=== PATIENT | female | born 2000 | race Caucasian/White ===

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

== ENCOUNTER 2019-01-05 01:37 | Outpatient (CLI) | payer OTHER ==
[~2019-01-05] VITALS: Ht 157.5 cm; Wt 64.0 kg
[2019-01-05 01:54] VITALS: BP 106/63
[2019-01-05] MEDS ORDERED: LACTATED RINGER'S 1000 ML IV ONE (02:15)
[2019-01-05] MEDS ORDERED: LR 1,000 ML IV ONE (02:15)
[2019-01-05 02:21] LABS: APPEARANCE, URINE CLEAR (CLEAR); BACTERIA, URINE AUTO NEGATIVE (NEGATIVE); BILIRUBIN, URINE AUTO NEGATIVE (NEGATIVE); BLOOD, URINE BLOOD NEGATIVE (NEGATIVE); COLOR, URINE YELLOW (YELLOW); GLUCOSE, URINE (UA) AUTO NEGATIVE (NEGATIVE); KETONE, URINE AUTO NEGATIVE (NEGATIVE); LEUKOCYTE ESTERASE, URINE AUTO NEGATIVE (NEGATIVE); MUCUS, URINE SMALL (NEGATIVE); NITRITE, URINE AUTO NEGATIVE (NEGATIVE); PROTEIN, URINE AUTO NEGATIVE (NEGATIVE); RBC, URINE AUTO 1 /HPF (0-3); SPECIFIC GRAVITY URINE AUTO 1.014 (1.002-1.035); SQUAMOUS EPITHELIAL CELL UR AU 1 /HPF (0-6); UROBILINOGEN, URINE AUTO 0.2 mg/dL (0.0-2.0); WBC, URINE AUTO 1 /HPF (0-3)
[2019-01-05] MEDS ORDERED: TERBUTALINE SULFATE 1 MG/ML VIAL (J3105) As Ordered ONE (02:29)
[2019-01-05] MEDS ORDERED: TERBUTALINE SULFATE 1 MG/ML VIAL (J3105) SC ONE ×2 (02:30→03:15)
[2019-01-05 03:12] VITALS: BP 88/51
[2019-01-05 03:13] VITALS: BP 88/49
[2019-01-05 03:14] VITALS: BP 87/48
[2019-01-05 05:46] VITALS: BP 100/50
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
--- NOTE | 2019-01-05 09:25 | IPNPDOC ---
Text Note Date of Service The patient was seen on 01/05/19. NOTE Subjective: Patient reports contractions have spaced. Objective: SVE: no change. Assessment: IUP at 33.1 weeks gestation, not in active labor Plan: Discharge to home. Remove saline lock. VS,Fishbone, I+O VS, Fishbone, I+O Vital Signs Date Time Temp Pulse Resp B/P (MAP) Pulse Ox O2 Delivery O2 Flow Rate FiO2 01/05/19 05:46 98.6 110 16 100/50 (67) I&O- Last 24 Hours up to 6 AM 01/05/19 06:00 Intake Total 1275 ml Balance 1275 ml CJ GARCIA CNM Jan 05, 2019 09:25
== END 2019-01-05 09:20 | disposition home or self-care (01) ==
LOC: M LDO 01:37
PROVIDERS: ATTEND Advanced Practice Midwife
DX: O26.893 Other specified pregnancy related conditions, third trimester (principal); R10.9 Unspecified abdominal pain; O47.03 False labor before 37 completed weeks of gestation, third trimester; Z3A.33 33 weeks gestation of pregnancy
CPT/HCPCS: 59025; 81001; 87086; G0378; G0463; J3105

== ENCOUNTER 2019-01-18 13:53 | Emergency (ER) | payer OTHER, SELFPAY ==
[~2019-01-18] VITALS: Ht 157.5 cm; Wt 64.5 kg
[~2019-01-18 13:53] MED LIST changes: -PREN1TAB14; -URSO300C3 PO
[2019-01-18] MEDS ORDERED: PREN1TAB14 (14:00)
[2019-01-18 15:15] LABS: BASO % 0.4 % (0.0-1.0); EOS # 0.2 10^3/uL (0.0-0.5); EOS % 2.2 % (0.0-3.0); HEMATOCRIT 31.4 % (36.0-47.0); HEMOGLOBIN 10.4 g/dl (12.0-15.5); LYMPH % 24.4 % (24.0-44.0); MEAN CORPUSCULAR HEMOGLOBIN 31.8 pg (27.0-33.0); MEAN CORPUSCULAR HGB CONC 33.1 g/dl (32.0-36.5); MONO # 0.4 10^3/uL (0.0-0.8); MONO % 4.5 % (0.0-5.0); NEUTROPHILS # 5.6 10^3/uL (1.5-8.5); PLATELET COUNT, AUTOMATED 246 10^3/uL (150-450); RED BLOOD COUNT 3.27 10^6/uL (4.00-5.40); WHITE BLOOD COUNT 8.2 10^3/uL (4.0-10.0)
--- NOTE | 2019-01-18 15:36 | REP ---
Clinical: Shortness of breath . Comparison: None . Findings: The mediastinum and cardiac silhouette are stable and within normal limits for portable technique. The lung go are clear without acute consolidation, effusion, or pneumothorax. Skeletal structures are intact. Impression: No acute cardiopulmonary process appreciated. Electronically Signed by Kris Pedraza MD 01/18/2019 03:27 P
[2019-01-18 15:40] LABS: ALBUMIN 2.9 GM/DL (3.2-5.2); ALT/SGPT 29 U/L (12-78); BILIRUBIN,DIRECT 0.2 MG/DL (0.0-0.2); BILIRUBIN,TOTAL 0.5 MG/DL (0.2-1.0); BLOOD UREA NITROGEN 8 MG/DL (7-18); CALCIUM LEVEL 8.2 MG/DL (8.5-10.1); CARBON DIOXIDE LEVEL 24 MEQ/L (21-32); CHLORIDE LEVEL 104 MEQ/L (98-107); CREATININE FOR GFR 0.48 MG/DL (0.55-1.30); GLUCOSE, FASTING 72 MG/DL (70-100); MAGNESIUM LEVEL 1.9 MG/DL (1.4-2.0); POTASSIUM SERUM 4.1 MEQ/L (3.5-5.1); SODIUM LEVEL 137 MEQ/L (136-145); TOTAL PROTEIN 6.5 GM/DL (6.4-8.2)
[2019-01-18] MEDS ORDERED: ISOVUE-370 76% 100ML VIAL (Q9967) As Ordered ONE (16:05)
--- NOTE | 2019-01-18 16:28 | REP ---
CT pulmonary angiogram: With IV contrast. History: Shortness of breath. 25 weeks gestation. Rule out pulmonary embolus. Comparison studies: Comparison is made with today's chest x-ray. Contrast dose: 75 ML of Isovue [address] technique: Helical scanning is acquired and overlapping 1.5 mm and contiguous 3 mm axial images are reformatted. In addition, maximum intensity projection and multiplanar re-formation images are generated in sagittal and coronal imaging projections. CT pulmonary angiographic findings: There is good opacification of the pulmonary arterial tree. There is no CT evidence of pulmonary embolism. Maximal intensity projection images show no evidence of vessel cutoff or filling defect. The thoracic aorta enhances homogeneously and it is normal in caliber and course. There is no evidence of pleural or pericardial effusion. No infiltrate is seen in the lung go. The visualized upper abdominal structures are unremarkable. No bony destructive lesion. Impression: No CT evidence of pulmonary embolus. Negative CT pulmonary angiogram. Electronically Signed by John Espinoza MD 01/18/2019 04:20 P
[2019-01-18 17:40] LABS: THYROID STIMULATING HORMONE 0.303 uIU/ML (0.463-3.98)
--- NOTE | 2019-01-18 20:40 | ECGEPIP ---
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
[2019-01-18] MEDS ORDERED: NS 1,000 ML IV ONE (21:00)
[2019-01-18 23:00] VITALS: BP 119/67
== END 2019-01-18 23:21 | disposition home or self-care (01) ==
LOC: M ED 13:53
DX: R06.00 Dyspnea, unspecified (principal); E05.90 Thyrotoxicosis, unspecified without thyrotoxic crisis or storm; L29.9 Pruritus, unspecified
CPT/HCPCS: 36415; 71045; 71275; 80048; 80076; 81001; 82239; 83735; 84443; 84550; 85025; 87086; 87486; 87581; 87633; 87798; 93005; 93041; 94760; 99285; Q9967

== ENCOUNTER → 2019-01-18 | Outpatient (CLI) | payer OTHER ==
[~2019-01-18] MED LIST changes: +PREN1TAB14; +URSO300C3 PO
[2019-01-18 18:21] LABS: ALBUMIN 2.9 GM/DL (3.2-5.2); BILIRUBIN,DIRECT 0.2 MG/DL (0.0-0.2); BILIRUBIN,TOTAL 0.6 MG/DL (0.2-1.0); TOTAL PROTEIN 6.4 GM/DL (6.4-8.2)
== END ==
LOC: M SMT 13:17
PROVIDERS: ATTEND Obstetrics & Gynecology
DX: L29.9 Pruritus, unspecified (principal)

== ENCOUNTER 2019-01-21 12:06 | Outpatient (CLI) | payer OTHER, SELFPAY ==
[~2019-01-21] VITALS: Ht 157.5 cm; Wt 65.9 kg
[~2019-01-21 12:06] MED LIST changes: +PREN1TAB14
[2019-01-21 12:20] VITALS: BP 88/49
[2019-01-21] MEDS ORDERED: BETAMETHASONE SOLUSPAN 6MG/ML INJ 5ML (J0702) IM SCH (12:45)
[2019-01-21 13:06] VITALS: BP 79/45
--- NOTE | 2019-01-21 14:51 | REP ---
Clinical: Growth evaluation. Comparison: 10/05/2018 . Findings: Examination demonstrates a single live intrauterine in cephalic presentation. motion is identified by technologist. Placenta is noted posterior and grade zero without evidence for placenta previa or abruption. No evidence for nuchal cord. Gestational age by LMP 35 weeks 4 days with BOMO 02/21/2019 . Gestational age by current measurements 35 weeks 4 days with BOOM 02/21/2019 . FHR equals 153 beats per minute. Estimated weight 2757 grams ( 52nd percentile). Biophysical profile score: 8/8 Amniotic fluid index: 4.7 cm Umbilical cord SD ratio: 1.90 Impression: 1. Single live intrauterine in cephalic presentation demonstrating appropriate interval growth. 2. Biophysical profile score normal. 3. Amniotic fluid volume below normal limits. Electronically Signed by Kris Pedraza MD 01/21/2019 02:43 P
[2019-01-21 14:57] VITALS: BP 105/55
[2019-01-21] MEDS ORDERED: URSODIOL 300 MG CAP PO SCH (15:00)
[2019-01-22] MEDS ORDERED: URSO300C3 PO (13:24)
== END 2019-01-21 15:20 | disposition home or self-care (01) ==
LOC: M LDO 12:06
PROVIDERS: ATTEND Obstetrics & Gynecology
DX: O99.89 Other specified diseases and conditions complicating pregnancy, childbirth and the puerperium (principal); Z3A.35 35 weeks gestation of pregnancy; K71.0 Toxic liver disease with cholestasis
CPT/HCPCS: 59025; 76816; 76819; 96372; G0378; G0463; J0702

== ENCOUNTER 2019-01-22 12:53 | Outpatient (CLI) | payer OTHER ==
[~2019-01-22] VITALS: Ht 157.5 cm; Wt 66.0 kg
[2019-01-22 13:09] VITALS: BP 103/59
[2019-01-22] MEDS ORDERED: URSO300C3 PO (13:24)
--- NOTE | 2019-01-22 13:39 | IPNPDOC ---
Text Note Date of Service The patient was seen on 01/22/19. NOTE Outpatient 18yo BOOM 02/22/19. Presents @ 35+ gestation for betamethasone #2. Hx significant for dx cholestasis and previous Scheduled for repeat 01/26/19. Cat I tracing, VSS, no UC. Discharged home after injection. Routine precautions of labor and daily FKC reviewed. VS,Fishbone, I+O VS, Fishbone, I+O Vital Signs Date Time Temp Pulse Resp B/P (MAP) Pulse Ox O2 Delivery O2 Flow Rate FiO2 01/22/19 13:09 98.7 100 18 103/59 (74) Marci Stovall CNM Jan 22, 2019 13:39
[2019-01-22 13:41] VITALS: BP 105/56
[2019-01-22] MEDS ORDERED: BETAMETHASONE SOLUSPAN 6MG/ML INJ 5ML (J0702) IM ONE (13:45)
== END 2019-01-22 13:44 | disposition home or self-care (01) ==
LOC: M LDO 12:53
PROVIDERS: ATTEND Advanced Practice Midwife
DX: O99.89 Other specified diseases and conditions complicating pregnancy, childbirth and the puerperium (principal); Z3A.35 35 weeks gestation of pregnancy; K71.0 Toxic liver disease with cholestasis
CPT/HCPCS: 96372; G0378; J0702

== ENCOUNTER 2019-01-26 09:39 | Inpatient (IN) | payer OTHER ==
[~2019-01-26] VITALS: Ht 157.5 cm; Wt 66.8 kg
[~2019-01-26 09:39] MED LIST changes: +URSO300C3 PO
[2019-01-26] MEDS ORDERED: LACTATED RINGER'S 1000 ML IV STA ×2 (10:10→18:40)
[2019-01-26] MEDS ORDERED: LR 1,000 ML IV SCH ×3 (10:10→13:30)
[2019-01-26] MEDS ORDERED: ceFAZolin SOD 2 GM in IV 1 EA IV ONE (10:15)
[2019-01-26] MEDS ORDERED: BICITRA 30ML SOLN UDC PO ONE (10:15)
[2019-01-26 10:49] LABS: HEMATOCRIT 31.2 % (36.0-47.0); MEAN CORPUSCULAR HEMOGLOBIN 30.8 pg (27.0-33.0); MEAN CORPUSCULAR HGB CONC 32.1 g/dl (32.0-36.5); PLATELET COUNT, AUTOMATED 264 10^3/uL (150-450); RED BLOOD COUNT 3.25 10^6/uL (4.00-5.40); WHITE BLOOD COUNT 9.2 10^3/uL (4.0-10.0)
[2019-01-26] MEDS ORDERED: NALOXONE INJ 0.4 MG/1 ML VIAL (J2310) IV PRN ×2 (11:49)
[2019-01-26] MEDS ORDERED: ONDANSETRON 4MG/2ML VIAL (J2405) IV PRN ×3 (11:49→13:30)
[2019-01-26] MEDS ORDERED: diphenhydrAMINE INJ 50MG/ML VIAL (J1200) IV PRN (11:49)
[2019-01-26] MEDS ORDERED: NALBUPHINE HCL 10 MG/ML AMP (J2300) IV PRN ×2 (11:49→13:30)
[2019-01-26] MEDS ORDERED: METOCLOPRAMIDE INJ 10MG/2ML VIAL (J2765) IV PRN (11:49)
[2019-01-26] MEDS ORDERED: KETOROLAC 60 MG/2 ML VIAL (J1885) As Ordered ONE (11:57)
[2019-01-26] MEDS ORDERED: ACETAMINOPHEN 1000MG 100ML IV BTL (OFIRMEV) (J0131 PER 10MG) As Ordered ONE (11:57)
[2019-01-26] MEDS ORDERED: dexameTHASONE 4 MG/ML 1ML VIAL (J1100) As Ordered ONE (11:57)
[2019-01-26] MEDS ORDERED: ONDANSETRON 4MG/2ML VIAL (J2405) As Ordered ONE (11:57)
[2019-01-26] MEDS ORDERED: ePHEDrine SULFATE 25 MG/5 ML(5MG/ML) SYRINGE As Ordered ONE (11:57)
[2019-01-26] MEDS ORDERED: MORPHINE PRES-FREE INJ 10 MG/10 ML VIAL (J2274) As Ordered ONE (11:57)
[2019-01-26] MEDS ORDERED: PHENYLephrine HCL 500 MCG/5 ML (100MCG/ML) SYRINGE (J2370) As Ordered ONE (11:57)
[2019-01-26] MEDS ORDERED: OXYTOCIN INJ 10 UNITS/ML VIAL (J2590) As Ordered ONE ×2 (11:57→12:42)
[2019-01-26] MEDS ORDERED: MEASLES,MUMPS,RUBELLA VACCINE INJ (MMR-II) (90707) SC SCH (12:45)
[2019-01-26] MEDS ORDERED: PROMETHAZINE 25 MG TAB PO PRN (12:45)
[2019-01-26] MEDS ORDERED: RHOGAM 300 MCG (1500 IU) INJ (J2790) IM SCH (12:45)
[2019-01-26] MEDS ORDERED: OXYTOCIN DRIP 30 UNITS in IV 1 EA IV SCH (12:45)
[2019-01-26] MEDS ORDERED: ACETAMINOPHEN 500 MG TAB PO PRN (12:45)
[2019-01-26] MEDS ORDERED: fentaNYL 100 MCG/2 ML INJECTION (J3010) As Ordered ONE (13:18)
[2019-01-26] MEDS: fentaNYL 100 MCG/2 ML INJECTION (J3010) IV PRN ×4 (13:22→14:16)
[2019-01-26 15:00] VITALS: BP 96/63
[2019-01-26 15:30] VITALS: BP 94/56
--- NOTE | 2019-01-26 16:16 | RO ---
DATE OF PROCEDURE: 01/26/2019 PREOPERATIVE DIAGNOSES: 1. Intrahepatic cholestasis of . 2. History of section, for repeat. 3. Intrauterine at 36 weeks 1 day estimated gestational age. POSTOPERATIVE DIAGNOSES: PROCEDURE: SURGEON: Mari Benavides MD ELECTRICIAN'S ASSISTANT: Dragan Lewis DO ANESTHESIA: Spinal. ESTIMATED BLOOD LOSS: 600 mL. IV FLUIDS: 1500 mL of lactated Ringer's solution. URINE OUTPUT: 275 mL. OPERATIVE FINDINGS: Live born female infant, scores 8 and 9, weight was 2590 grams or 5 pounds 11 ounces. PREOPERATIVE ANTIBIOTICS: 2 grams of Ancef. INFECTION CLASSIFICATION: 2. SPECIMENS: None. DESCRIPTION OF OPERATION: After informed consent was obtained and written consent was reviewed, the patient was brought to operating room where spinal anesthesia was placed. She was then placed in the supine position with a left lateral tilt. Lopez catheter was placed and set to gravity. She was then prepped and draped in a normal sterile fashion. A time out in the operating room was then performed identifying the patient, procedure to be performed, as well as drug allergies. Anesthesia was tested and deemed to be adequate. A Pfannenstiel skin incision was then made, and this was carried down to the underlying rectus fascia. This was done along the previous skin incision. The fascia was then scored bilaterally and was then extended. The fascia was then dissected off the underlying rectus muscles both superiorly, inferiorly. The rectus muscles were then in the midline. The peritoneum was then entered sharply. A Mobius retractor was then inserted. The lower uterine segment was then identified, it was excised, and this was extended manually. Amniotomy was then performed productive of clear fluid. head was brought to the level of the incision atraumatically and delivered along with shoulders and corpus. Cord was clamped times two and was cut, and the infant was taken over to the warmer with a good cry. The placenta was then delivered grossly intact. The uterus was exteriorized and cleared of all clots and debris. The uterine incision was then closed in two layers using #0 Vicryl, first in a running locking fashion followed by a second layer for imbrication in a running nonlocking. Additional suture closure was done with #0 Vicryl in a locking fashion for hemostasis. Hemostasis was then noted. The abdomen was then suctioned. The uterine incision was once again inspected and noted to be hemostatic, and it was returned in the patient's abdomen, was reinspected noted be hemostatic. The Mobius retractor was then removed. The anterior peritoneum was then reapproximated using #3-0 Vicryl. The rectus muscles were reapproximated using #3-0 Vicryl. The subcutaneous tissue was then irrigated and suctioned. The subcutaneous tissue was then reapproximated with #3-0 Vicryl. Several subdermal stitches were placed of #3-0 Vicryl, and the skin was closed with #4-0 Monocryl in a subcuticular fashion. The incision was then cleaned and dried and was dressed. The patient was then taken to recovery in stable condition. Counts were correct. Dr. Lewis, my surgical elastic knitter hand frame, played an essential role during the surgery. He assisted with tissue identification and retraction, delivery of the as well as wound closure.
[2019-01-26 16:30] VITALS: BP 100/65
[2019-01-26 17:30] VITALS: BP 100/60
[2019-01-26] MEDS ORDERED: PROMETHAZINE INJ 25 MG/ML VIAL (J2550) IV PRN (17:45)
[2019-01-26] MEDS: KETOROLAC 30 MG/ML VIAL (J1885) IV SCH (18:48)
[2019-01-26] MEDS: DOCUSATE SODIUM 100 MG CAP PO SCH (20:31)
[2019-01-26 22:00] VITALS: BP 111/72
[2019-01-27] MEDS: KETOROLAC 30 MG/ML VIAL (J1885) IV SCH ×2 (01:50→06:38)
[2019-01-27 02:00] VITALS: BP 105/56
[2019-01-27] MEDS: PERCOCET 5MG/325MG TAB PO PRN ×4 (04:34→19:41)
[2019-01-27 06:00] VITALS: BP 103/53
[2019-01-27] MEDS ORDERED: IBUP80TA PO (07:37)
[2019-01-27] MEDS ORDERED: DOCU100C16 PO (07:37)
[2019-01-27] MEDS ORDERED: PERCOCET PO (07:37)
[2019-01-27 07:47] LABS: HEMOGLOBIN 8.4 g/dl (12.0-15.5); MEAN CORPUSCULAR HEMOGLOBIN 30.4 pg (27.0-33.0); MEAN CORPUSCULAR HGB CONC 32.3 g/dl (32.0-36.5); MEAN CORPUSCULAR VOLUME 94.2 fl (80.0-96.0); PLATELET COUNT, AUTOMATED 275 10^3/uL (150-450); RED BLOOD COUNT 2.76 10^6/uL (4.00-5.40); WHITE BLOOD COUNT 16.6 10^3/uL (4.0-10.0)
[2019-01-27] MEDS: PRENATAL VITAMINS CHEWABLE TABLET PO SCH (08:25)
[2019-01-27] MEDS: DOCUSATE SODIUM 100 MG CAP PO SCH ×2 (08:25→20:20)
[2019-01-27 09:57] VITALS: BP 105/62
[2019-01-27 14:00] VITALS: BP 104/56
[2019-01-27] MEDS: IBUPROFEN 800 MG TAB PO SCH ×2 (15:27→22:18)
[2019-01-27] MEDS ORDERED: diphenhydrAMINE 50 MG CAP PO PRN (17:00)
[2019-01-27 18:05] VITALS: BP 95/53
[2019-01-27 22:05] VITALS: BP 95/57
[2019-01-28 02:06] VITALS: BP 95/53
[2019-01-28] MEDS: IBUPROFEN 800 MG TAB PO SCH (06:11)
[2019-01-28 06:16] VITALS: BP 102/53
--- NOTE | 2019-01-28 07:25 | DSES ---
DATE OF ADMISSION: 01/26/2019 DATE OF DISCHARGE: 01/28/2019 DISCHARGE DIAGNOSIS: 1. Repeat section, postoperative day two. 2. Cholestasis. SURGEON: Dr. Mari Benavides CUTTING INSPECTOR: Dr. Dragan Lewis HISTORY: La Nena is a 18-year-old, 2, para 1-1-0-2 now, who was admitted for repeat section at 36 and 1/7 weeks due to cholestasis. Her surgery was uncomplicated. Her estimated blood loss was 600 mL. She did deliver a female weighing 2590 grams, 5 pounds 11 ounces, Apgars 8 and 9. SUBJECTIVE: The patient is tolerating by mouth fluids and regular diet. She is voiding without difficulty and passing flatus. She has been out of bed for self care, roderick care and infant care. She is breast feeding. Her pain has been well controlled with by mouth pain medications. OBJECTIVE: Temperature 98.4, pulse 82, respirations 18, blood pressure 102/53. Preoperative CBC with hemoglobin 10.0, hematocrit 31.2 and platelets 264. Postoperative CBC with hemoglobin 8.4, hematocrit 26.0 and platelets 275. Breasts are soft and nontender. Nipples are intact. Her abdomen is fundus firm at one fingerbreadth below umbilicus. Incision is well approximated. Dressing is intact. There is no new drainage noted. Perineum lochia rubra scant. Bilateral lower extremities with no edema. PLAN: Discharge the patient home today. She is to followup at [facility] for a 2-week incision check and a 6-week appointment. Prescriptions have been E-prescribed by Dr. Dragan Lewis to her pharmacy. I did review discharge instructions that include breast care, incision care, roderick care, pelvic rest, activity and lifting restrictions, danger signs to report and access to her provider. The patient has had all of her questions answered and desires discharge today. edited: 01/29/2019 0718 tkf NAIMA
[2019-01-28] MEDS: PERCOCET 5MG/325MG TAB PO PRN (07:48)
[2019-01-28] MEDS: PRENATAL VITAMINS CHEWABLE TABLET PO SCH (07:48)
[2019-01-28] MEDS: DOCUSATE SODIUM 100 MG CAP PO SCH (07:48)
[2019-01-28 09:58] VITALS: BP 101/61
[2019-01-28 10:00] VITALS: BP 105/57
== END 2019-01-28 11:20 | disposition home or self-care (01) | DRG 771 ==
LOC: M LDI 09:39 → M OBS 15:06
PROVIDERS: ADMIT Obstetrics & Gynecology; ATTEND Obstetrics & Gynecology
PROC: 10D00Z1 Extraction of Products of Conception, Low, Open Approach (ICD-10-PCS; principal; 2019-01-26 11:30)
DX: O26.62 Liver and biliary tract disorders in childbirth (principal); K83.1 Obstruction of bile duct; Z3A.36 36 weeks gestation of pregnancy; O34.211 Maternal care for low transverse scar from previous cesarean delivery; Z37.0 Single live birth; O99.52 Diseases of the respiratory system complicating childbirth; J45.909 Unspecified asthma, uncomplicated

== ENCOUNTER 2019-02-09 06:49 | Emergency (ER) | payer OTHER ==
[~2019-02-09] VITALS: Ht 157.5 cm; Wt 61.4 kg
[~2019-02-09 06:49] MED LIST changes: +DOCU100C16 PO; +IBUP80TA PO; +PERCOCET PO
[2019-02-09] MEDS ORDERED: CLIN300C5 (06:59)
[2019-02-09] MEDS ORDERED: ACET-683 PO (08:54)
[2019-02-09 09:37] LABS: BASO % 0.6 % (0.0-1.0); EOS # 0.2 10^3/uL (0.0-0.5); EOS % 2.8 % (0.0-3.0); HEMATOCRIT 36.7 % (36.0-47.0); HEMOGLOBIN 11.7 g/dl (12.0-15.5); LYMPH # 1.4 10^3/uL (1.5-5.0); LYMPH % 20.9 % (24.0-44.0); MEAN CORPUSCULAR HEMOGLOBIN 30.2 pg (27.0-33.0); MEAN CORPUSCULAR HGB CONC 31.9 g/dl (32.0-36.5); MEAN CORPUSCULAR VOLUME 94.6 fl (80.0-96.0); MONO # 0.3 10^3/uL (0.0-0.8); MONO % 4.6 % (0.0-5.0); NEUTROPHILS # 4.6 10^3/uL (1.5-8.5); NEUTROPHILS % 70.8 % (36.0-66.0); PLATELET COUNT, AUTOMATED 265 10^3/uL (150-450); RED BLOOD COUNT 3.88 10^6/uL (4.00-5.40); WHITE BLOOD COUNT 6.5 10^3/uL (4.0-10.0)
[2019-02-09 09:57] LABS: BLOOD UREA NITROGEN 11 MG/DL (7-18); CALCIUM LEVEL 8.9 MG/DL (8.5-10.1); CARBON DIOXIDE LEVEL 28 MEQ/L (21-32); CHLORIDE LEVEL 106 MEQ/L (98-107); CREATININE FOR GFR 0.56 MG/DL (0.55-1.30); GLUCOSE, FASTING 76 MG/DL (70-100); POTASSIUM SERUM 4.4 MEQ/L (3.5-5.1); SODIUM LEVEL 140 MEQ/L (136-145)
--- NOTE | 2019-02-09 10:40 | REP ---
Pelvic sonography: History: Post . Fever. 2 weeks post delivery. Sonographic findings: Uterine dimensions are 11.3 x 4.6 x 8.8 cm. Endometrial echo is 2.3 cm thick and heterogeneous. There is some fluid and debris in the endometrium. No free fluid in the cul-de-sac. Normal left ovary is seen measuring 2.7 x 2.0 x 1.7 cm. The right ovary could not be visualized. No adnexal mass or free fluid is seen. Impression: Irregularly thickened endometrium, some residual uterine enlargement. Normal left ovary. Right ovary could not be visualized. Electronically Signed by John Espinoza MD 02/09/2019 03:32 P
[2019-02-09] MEDS ORDERED: CLINDAMYCIN 600 MG in IV 1 EA IV ONE (11:15)
[2019-02-09 11:59] VITALS: BP 123/68
--- NOTE | 2019-02-10 14:08 | ED PDOC ---
Post-Departure Follow-Up dr tinoco faxed formal report of pelvic us for fu Jose Luis Pyle MD Feb 10, 2019 14:08
== END 2019-02-09 12:00 | disposition home or self-care (01) ==
LOC: M ED 06:49
DX: O86.12 Endometritis following delivery (principal)

== ENCOUNTER → 2019-04-01 | Outpatient (REF) | payer OTHER ==
[~2019-04-01] MED LIST changes: +ACET-683 PO; +CLIN300C5
[2019-04-01 22:51] LABS: CHLAMYDIA DNA AMPLIFICATION NEGATIVE (NEGATIVE); GC DNA AMPLIFICATION NEGATIVE (NEGATIVE)
== END ==
LOC: M SFHCLERA 16:00
PROVIDERS: ATTEND Physician Assistant
DX: R10.2 Pelvic and perineal pain (principal)
CPT/HCPCS: 81002; 81025; 87070; 87661; G0463

== ENCOUNTER 2019-05-23 22:40 | Emergency (ER) | payer OTHER ==
[~2019-05-23] VITALS: Ht 157.5 cm; Wt 62.6 kg
[2019-05-23 22:41] VITALS: BP 122/67
[2019-05-23 23:32] LABS: BASO % 0.5 % (0.0-1.0); EOS # 0.2 10^3/uL (0.0-0.5); EOS % 3.2 % (0.0-3.0); HEMATOCRIT 38.1 % (36.0-47.0); HEMOGLOBIN 12.7 g/dl (12.0-15.5); LYMPH # 3.2 10^3/uL (1.5-5.0); LYMPH % 42.7 % (24.0-44.0); MEAN CORPUSCULAR HEMOGLOBIN 30.8 pg (27.0-33.0); MEAN CORPUSCULAR HGB CONC 33.3 g/dl (32.0-36.5); MEAN CORPUSCULAR VOLUME 92.5 fl (80.0-96.0); MONO # 0.5 10^3/uL (0.0-0.8); MONO % 6.6 % (0.0-5.0); NEUTROPHILS # 3.5 10^3/uL (1.5-8.5); NEUTROPHILS % 46.6 % (36.0-66.0); PLATELET COUNT, AUTOMATED 274 10^3/uL (150-450); RED BLOOD COUNT 4.12 10^6/uL (4.00-5.40); WHITE BLOOD COUNT 7.6 10^3/uL (4.0-10.0)
[2019-05-23 23:49] LABS: INR 1.03; PROTHROMBIN TIME 13.2 SECONDS (11.8-14.0)
[2019-05-23 23:50] LABS: PARTIAL THROMBOPLASTIN TIME 34.8 SECONDS (25.0-38.4)
[2019-05-23 23:53] LABS: D-DIMER QUANT 525.1 ng/ml (<500)
[2019-05-24 00:21] LABS: CK-MB VALUE MASS < 1.0 NG/ML (<3.6); CPK CREATINE PHOSPHOKINASE 72 U/L (26-192); MB/CK RELATIVE INDEX 1.39 (< OR =4); TROPONIN I < 0.02 NG/ML (< 0.10)
[2019-05-24] MEDS ORDERED: GI COCKTAIL 50ML BTL(HYOSCYAMINE/MAALOX/LIDOCAINE VISCOUS)(1:3:1) PO ONE (01:00)
--- NOTE | 2019-05-24 07:26 | ECGEPIP ---
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
--- NOTE | 2019-05-24 08:06 | REP ---
Chest x-ray: Two views. History: Chest pain left-sided. . Comparison study: Comparison chest x-ray January 18, 2019 . Findings: The lungs are well inflated and free of infiltrate. The pleural angles are sharp. The heart size is normal. Pulmonary vasculature is not increased. No significant bony abnormality is seen. There are clips in the right upper quadrant of the abdomen. Impression: Negative chest x-ray. Electronically Signed by John Espinoza MD 05/24/2019 07:58 A
== END 2019-05-24 02:01 | disposition home or self-care (01) ==
LOC: M ED 22:40
DX: K21.9 Gastro-esophageal reflux disease without esophagitis (principal); R07.9 Chest pain, unspecified

== ENCOUNTER 2019-06-13 10:32 | Inpatient (IN) | payer OTHER ==
[~2019-06-13] VITALS: Ht 158.8 cm; Wt 65.2 kg
[2019-06-13] MEDS ORDERED: ALBUTEROL 90 MCG/ACT 8GM HFA INHALER INH ONE ×2 (11:15→12:30)
[2019-06-13 11:37] VITALS: O2SAT 85
[2019-06-13 11:38] LABS: BASO % 0.4 % (0.0-1.0); EOS # 0.1 10^3/uL (0.0-0.5); EOS % 1.9 % (0.0-3.0); HEMATOCRIT 36.9 % (36.0-47.0); HEMOGLOBIN 12.3 g/dl (12.0-15.5); LYMPH % 39.1 % (24.0-44.0); MEAN CORPUSCULAR HEMOGLOBIN 30.5 pg (27.0-33.0); MEAN CORPUSCULAR HGB CONC 33.3 g/dl (32.0-36.5); MEAN CORPUSCULAR VOLUME 91.6 fl (80.0-96.0); MONO # 0.4 10^3/uL (0.0-0.8); MONO % 7.3 % (0.0-5.0); NEUTROPHILS # 2.7 10^3/uL (1.5-8.5); NEUTROPHILS % 51.1 % (36.0-66.0); PLATELET COUNT, AUTOMATED 262 10^3/uL (150-450); RED BLOOD COUNT 4.03 10^6/uL (4.00-5.40); WHITE BLOOD COUNT 5.2 10^3/uL (4.0-10.0)
[2019-06-13 12:16] LABS: ALBUMIN 3.9 GM/DL (3.2-5.2); BILIRUBIN,DIRECT 0.1 MG/DL (0.0-0.2); BILIRUBIN,TOTAL 0.6 MG/DL (0.2-1.0); TOTAL PROTEIN 7.3 GM/DL (6.4-8.2)
[2019-06-13] MEDS ORDERED: methylPREDNISolone INJ 125 MG/2 ML VIAL (J2930) IV ONE (12:30)
--- NOTE | 2019-06-13 13:05 | REP ---
Clinical: Cough and shortness of breath . Comparison: 05/23/2019 . Findings: The mediastinum and cardiac silhouette are stable and within normal limits for portable technique. The lung go are clear without acute consolidation, effusion, or pneumothorax. Skeletal structures are intact. Impression: No acute cardiopulmonary process appreciated. Electronically Signed by Kris Pedraza MD 06/13/2019 12:57 P
[2019-06-13] MEDS ORDERED: MULTTAB20 PO (13:38)
[2019-06-13] MEDS ORDERED: ALBUTEROL 90 MCG/ACT 8GM HFA INHALER INH PRN (15:00)
[2019-06-13 15:21] LABS: ABG BASE EXCESS -1.6 (-2.0-2.0); ABG PARTIAL PRESSURE CO2 33.7 mmHg (35.0-45.0); ABG STANDARD HCO3 23.2 MEQ/L (22.0-26.0); ABG TOTAL CO2 23.1 MEQ/L (22.0-29.0); ABG pH (ARTERIAL) 7.433 UNITS (7.350-7.450)
--- NOTE | 2019-06-13 15:39 | HPEPDOC ---
General Date of Admission 06/13/19 Date of Service: Jun 13, 2019 Chief Complaint The patient is a 18-year-old female admitted with a reason for visit of Cough, Sob. Source: Patient, RN/MD History of Present Illness 18 year old female with PMH of asthma not on any regular medications came to the ED with complaints of sore throat, tightness of the throat for 1 week and wheezi ng and SOB off and on for 1 week. She then started having diarrhea for the past 2 days. SHe describes it at liquid brown stools 2 to 3 times a day every time she eats anything. She was also found to have Beta- HCG positive. In the ED she was noted to be hypoxic to 85% on ambulation. She received methyl pred and albuterol with improvement of her symptoms however continued to become hypoxic on ambulation. CXR did not show any acute changes. Her respiratory panel was negative. Her strep throat was also negative. COVID-19 test was sent out. sharif was admitted for Hypoxia and asthma exacerbation. 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 Patient mother flew in from [place] 2 days ago. Home Medications Scheduled No122/Iron/Folic Acid ( Multi Tablet) 1 Each Tablet, 1 TAB PO DAILY, (Reported) Allergies Coded Allergies: No Known Allergies (Unverified , 08/22/18) Past Medical History Medical History Asthma Family History Significant Family History: No pertinent family hx (discussed with pateint) Social History * Smoker: Denies Alcohol: Denies Drugs: denies A-FIB/CHADSVASC A-FIB History Current/History of A-Fib/PAF?: No Review of Systems Constitutional: Denies: Chills, Fever, Night Sweats Eyes: Denies: Pain, Vision change ENT: Reports: Sore Throat Skin: Denies: Rash, Lesions, Breakdown Pulmonary: Reports: Dyspnea, Cough Cardiovascular: Denies: Chest Pain, Palpitations, Orthopnea, Paroxysmal Noc. Dyspnea, Lt Headedness Gastrointestinal: Reports: Diarrhea Genitourinary: Denies: Dysuria, Frequency, Incontinence, Retention Hematologic: Denies: Bruising, Bleeding Excessively Musculoskeletal: Denies: Neck Pain, Back Pain, Joint Pain, Muscle Pain, Spasms Physical Examination General Exam: Positive: Alert, Cooperative, No Acute Distress Eye Exam: Positive: PERRLA, Conjunctiva & lids normal, EOMI; Negative: Sclera icteric ENT Exam: Positive: Atraumatic, Mucous membr. moist/pink, Other ENT (pharyngeal erythema) Neck Exam: Positive: Supple; Negative: JVD, thyromegaly Chest Exam: Positive: Clear to auscultation, Normal air movement Heart Exam: Positive: Tachycardic, Regular Rhythm, Normal S1, Normal S2; Negative: Murmurs, Rubs Abdomen Exam: Positive: Normal bowel sounds, Soft; Negative: Tenderness, Hepatospenomegaly Extremity Exam: Positive: Normal pulses; Negative: Clubbing, Cyanosis, Edema Vital Signs Vital Signs Date Time Temp Pulse Resp B/P (MAP) Pulse Ox O2 Delivery O2 Flow Rate FiO2 06/13/19 15:04 98 16 99 Room Air 06/13/19 10:52 06/13/19 10:33 97.7 Laboratory Data Labs 24H Laboratory Tests 2 06/13/19 11:23: Immature Granulocyte % (Auto) 0.2, Neutrophils (%) (Auto) 51.1, Lymphocytes (%) (Auto) 39.1, Monocytes (%) (Auto) 7.3H, Eosinophils (%) (Auto) 1.9, Basophils (%) (Auto) 0.4, Neutrophils # (Auto) 2.7, Lymphocytes # (Auto) 2.0, Monocytes # (Auto) 0.4, Eosinophils # (Auto) 0.1, Basophils # (Auto) 0.0, Nucleated Red Blood Cells % (auto) 0.0, Total Bilirubin 0.6, Direct Bilirubin 0.1, Aspartate Amino Transf (AST/SGOT) 21, Alanine Aminotransferase (ALT/SGPT) 19, Alkaline Phosphatase 76, Total Protein 7.3, Albumin 3.9, Albumin/Globulin Ratio 1.15, Lipase 97, Human Chorionic Gonadotropin, Quant 387 06/13/19 11:25: POC Beta HCG, Quantitative 489.3 06/13/19 11:28: POC Glucose (Misc Panel) 95, POC Sodium (Misc Panel) 138, POC Potassium (Misc Panel) 4.0, POC Chloride (Misc Panel) 103, POC Total CO2 (Misc Panel) 27.0, POC Blood Urea Nitrogen (Misc Panel 11, POC Ionized Calcium (Misc Panel) 4.6, POC Creatinine (Misc Panel) 0.6, POC Hematocrit (Misc Panel) 37.0L CBC/BMP Laboratory Tests 06/13/19 11:23 Microbiology Microbiology 06/13/19 Coronavirus COVID-19 PCR ([place]), Received Pending 06/13/19 Respiratory Virus Panel (PCR) ([place]) - Final, Complete 06/13/19 Group A Streptococcus Screen ([place]), Received Pending Assessment/Plan 18 year old female with PMH of asthma not on any regular medications came to the ED with complaints of sore throat, tightness of the throat for 1 week and wheezing and SOB off and on for 1 week. She then started having diarrhea for the past 2 days. SHe describes it at liquid brown stools 2 to 3 times a day every time she eats anything. She was also found to have Beta- HCG positive. In the ED she was noted to be hypoxic to 85% on ambulation. She received methyl pred and albuterol with improvement of her symptoms however continued to become hypoxic on ambulation. CXR did not show any acute changes. Her respiratory panel was negative. Her strep throat was also negative. COVID-19 test was sent out. Patient was admitted for Hypoxia and asthma exacerbation. Hypoxia due to asthma exacerbation form possible viral URI. oxygen supplementation as needed ABG. Asthma exacerbation symbicort and albuterol prn will add prednisone if needed. Possible Viral respiratory infection Resp panel negative COVID-19 pcr has been sent. Sore throat Strep A is negative will send throat culture to look for other strep or staph infection Diarrhea could be part of viral infection will check GI panel in more than 3 loose stools. Early Beta-HCG just positive. LMP: 05/14/19 will have to be reconfirmed in a 2 weeks. Plan / VTE VTE Prophylaxis Ordered?: Yes NICOLE FRY MD Jun 13, 2019 15:38
[2019-06-13 16:30] VITALS: BP 114/71
[2019-06-13] MEDS: ACETAMINOPHEN TAB 650MG DOSE (2X325MG) PO PRN (17:23)
[2019-06-13] MEDS: SYMBICORT 80/4.5MCG INHALER 6GM INH SCH (20:14)
[2019-06-13 21:51] VITALS: BP 115/73
[2019-06-13 22:09] VITALS: BP_SYST 108; BP_SYST 109; BP_SYST 112; BP_DIAS 69; BP_DIAS 70; BP_DIAS 74
[2019-06-14 06:21] LABS: BASO % 0.1 % (0.0-1.0); EOS % 0.4 % (0.0-3.0); HEMATOCRIT 36.1 % (36.0-47.0); HEMOGLOBIN 11.7 g/dl (12.0-15.5); LYMPH # 2.3 10^3/uL (1.5-5.0); LYMPH % 21.9 % (24.0-44.0); MEAN CORPUSCULAR HEMOGLOBIN 30.1 pg (27.0-33.0); MEAN CORPUSCULAR HGB CONC 32.4 g/dl (32.0-36.5); MEAN CORPUSCULAR VOLUME 92.8 fl (80.0-96.0); MONO # 0.7 10^3/uL (0.0-0.8); MONO % 7.1 % (0.0-5.0); NEUTROPHILS # 7.2 10^3/uL (1.5-8.5); NEUTROPHILS % 70.2 % (36.0-66.0); PLATELET COUNT, AUTOMATED 276 10^3/uL (150-450); RED BLOOD COUNT 3.89 10^6/uL (4.00-5.40); WHITE BLOOD COUNT 10.3 10^3/uL (4.0-10.0)
[2019-06-14 06:23] VITALS: BP 102/60
[2019-06-14 06:41] LABS: BLOOD UREA NITROGEN 15 MG/DL (7-18); CALCIUM LEVEL 8.5 MG/DL (8.5-10.1); CARBON DIOXIDE LEVEL 25 MEQ/L (21-32); CHLORIDE LEVEL 109 MEQ/L (98-107); CREATININE FOR GFR 0.65 MG/DL (0.55-1.30); GLUCOSE, FASTING 123 MG/DL (70-100); POTASSIUM SERUM 3.4 MEQ/L (3.5-5.1); SODIUM LEVEL 141 MEQ/L (136-145)
[2019-06-14] MEDS: SYMBICORT 80/4.5MCG INHALER 6GM INH SCH (08:05)
[2019-06-14] MEDS ORDERED: POTASSIUM CHLORIDE 10 MEQ SR TABLET PO SCH (09:00)
[2019-06-14] MEDS: ACETAMINOPHEN TAB 650MG DOSE (2X325MG) PO PRN (09:41)
[2019-06-14] MEDS ORDERED: PROA1AER2 INH (10:51)
[2019-06-14] MEDS ORDERED: BUDE180INH INH (10:51)
--- NOTE | 2019-06-14 11:28 | DS.PDOC ---
Discharge Summary General Date of Admission Jun 13, 2019 at 14:57 Date of Discharge 06/14/19 Discharge Summary PROCEDURES PERFORMED DURING STAY: [None]. DISCHARGE DIAGNOSES: Asthma exacerbation Hypoxia Viral upper respiratory tract infection Presumptive COVID-19 infection Early . COMPLICATIONS/CHIEF COMPLAINT: Asthma,Viral Bronchitis. HISTORY OF PRESENT ILLNESS: See history and physical HOSPITAL COURSE: 18 year old female with PMH of asthma not on any regular medications came to the ED with complaints of sore throat, tightness of the throat for 1 week and wheezing and SOB off and on for 1 week. She then started having diarrhea for the past 2 days. SHe describes it at liquid brown stools 2 to 3 times a day every time she eats anything. She was also found to have Beta- HCG positive. In the ED she was noted to be hypoxic to 85% on ambulation. She received methyl pred and albuterol with improvement of her symptoms however continued to become hypoxic on ambulation. CXR did not show any acute changes. Her respiratory panel was negative. Her strep throat was also negative. COVID-19 test was sent out. Patient was admitted for Hypoxia and asthma exacerbation. Hypoxia due to asthma exacerbation form possible viral URI. oxygen supplementation as needed Asthma exacerbation Symbicort and albuterol prn will add prednisone if needed. Possible Viral respiratory infection Resp panel negative COVID-19 pcr has been sent. Sore throat Strep A is negative now resolved. Diarrhea could be part of viral infection now resolved Early Beta-HCG just positive. LMP: 05/14/19 will have to be reconfirmed in a 2 weeks. DISCHARGE MEDICATIONS: Please see below. ALLERGIES: Please see below. PHYSICAL EXAMINATION ON DISCHARGE: VITAL SIGNS: Please see below. General Exam: Positive: Alert, Cooperative, No Acute Distress Eye Exam: Positive: PERRLA, Conjunctiva & lids normal, EOMI; Negative: Sclera icteric ENT Exam: Positive: Atraumatic, Mucous membr. moist/pink, Other ENT (pharyngeal erythema) Neck Exam: Positive: Supple; Negative: JVD, thyromegaly Chest Exam: Positive: Clear to auscultation, Normal air movement Heart Exam: Positive: Tachycardic, Regular Rhythm, Normal S1, Normal S2; Negative: Murmurs, Rubs Abdomen Exam: Positive: Normal bowel sounds, Soft; Negative: Tenderness, Hepatospenomegaly Extremity Exam: Positive: Normal pulses; Negative: Clubbing, Cyanosis, Edema LABORATORY DATA: Please see below. ACTIVITY: [As tolerated]. DIET: As tolerated DISCHARGE PLAN: Home DISCHARGE INSTRUCTIONS: Follow up with [facility] in 1 week Follow [facility] weeks ITEMS TO FOLLOWUP ON ON OUTPATIENT: Final result for COVID -19 DISCHARGE CONDITION: [Stable]. TIME SPENT ON DISCHARGE: 35 minutes. Vital Signs/I&Os Vital Signs Date Time Temp Pulse Resp B/P (MAP) Pulse Ox O2 Delivery O2 Flow Rate FiO2 06/14/19 06:23 98.5 90 16 102/60 (74) 98 Room Air I&O- Last 24 Hours up to 6 AM 06/14/19 05:59 Intake Total 600 ml Output Total 750 ml Balance -150 ml Laboratory Data Labs 24H Laboratory Tests 2 06/13/19 11:23: Immature Granulocyte % (Auto) 0.2, Neutrophils (%) (Auto) 51.1, Lymphocytes (%) (Auto) 39.1, Monocytes (%) (Auto) 7.3H, Eosinophils (%) (Auto) 1.9, Basophils (%) (Auto) 0.4, Neutrophils # (Auto) 2.7, Lymphocytes # (Auto) 2.0, Monocytes # (Auto) 0.4, Eosinophils # (Auto) 0.1, Basophils # (Auto) 0.0, Nucleated Red Blood Cells % (auto) 0.0, Total Bilirubin 0.6, Direct Bilirubin 0.1, Aspartate Amino Transf (AST/SGOT) 21, Alanine Aminotransferase (ALT/SGPT) 19, Alkaline Phosphatase 76, Total Protein 7.3, Albumin 3.9, Albumin/Globulin Ratio 1.15, Lipase 97, Human Chorionic Gonadotropin, Quant 387 06/13/19 11:25: POC Beta HCG, Quantitative 489.3 06/13/19 11:28: POC Glucose (Misc Panel) 95, POC Sodium (Misc Panel) 138, POC Potassium (Misc Panel) 4.0, POC Chloride (Misc Panel) 103, POC Total CO2 (Misc Panel) 27.0, POC Blood Urea Nitrogen (Misc Panel 11, POC Ionized Calcium (Misc Panel) 4.6, POC Creatinine (Misc Panel) 0.6, POC Hematocrit (Misc Panel) 37.0L 06/13/19 15:13: Blood Gas Bicarbonate Standard 23.2, Arterial Blood pH 7.433, Arterial Blood Partial Pressure CO2 33.7L, Arterial Blood Partial Pressure O2 142.0H, Arterial Blood Total CO2 23.1, Arterial Blood HCO3 22.0, Arterial Blood Base Excess -1.6, Arterial Blood Oxygen Saturation 99.0 06/14/19 05:42: Immature Granulocyte % (Auto) 0.3, Neutrophils (%) (Auto) 70.2H, Lymphocytes (%) (Auto) 21.9L, Monocytes (%) (Auto) 7.1H, Eosinophils (%) (Auto) 0.4, Basophils (%) (Auto) 0.1, Neutrophils # (Auto) 7.2, Lymphocytes # (Auto) 2.3, Monocytes # (Auto) 0.7, Eosinophils # (Auto) 0.0, Basophils # (Auto) 0.0, Nucleated Red Blood Cells % (auto) 0.0 06/14/19 05:43: Anion Gap 7L, Calcium Level 8.5 CBC/BMP Laboratory Tests 06/13/19 11:23 06/14/19 05:42 06/14/19 05:43 Microbiology Microbiology 06/13/19 Coronavirus COVID-19 PCR ([place]), Received Pending 06/13/19 Respiratory Virus Panel (PCR) ([place]) - Final, Complete 06/13/19 Group A Streptococcus Screen ([place]), Received Pending Discharge Medications Scheduled Budesonide (Pulmicort Flexhaler) 180 Mcg Aer.pow.ba, 1 PUFF INH BID Take for 7 days. Scheduled PRN Albuterol Sulfate (Proair Respiclick) 90 Mcg Aer.pow.ba, 2 PUFF INH Q4-6HP PRN for shortness of breath Allergies Coded Allergies: No Known Allergies (Unverified , 08/22/18) NICOLE FRY MD Jun 14, 2019 11:27
[2019-06-14] MEDS ORDERED: FLUT11IN INH (12:36)
== END 2019-06-14 14:30 | disposition home or self-care (01) | DRG 832 ==
LOC: M ED 10:32 → M ED INP 14:57 → ENRESERVTM 15:35 → ENRESERVDT 15:35 → M MSPAV 16:24
PROVIDERS: ADMIT Internal Medicine Nephrology; ATTEND Internal Medicine Nephrology
DX: O99.511 Diseases of the respiratory system complicating pregnancy, first trimester (principal); J45.901 Unspecified asthma with (acute) exacerbation; J06.9 Acute upper respiratory infection, unspecified; R09.02 Hypoxemia; R19.7 Diarrhea, unspecified; Z11.59 Encounter for screening for other viral diseases; Z20.828 Contact with and (suspected) exposure to other viral communicable diseases; B97.4 Respiratory syncytial virus as the cause of diseases classified elsewhere; Z3A.00 Weeks of gestation of pregnancy not specified; O26.891 Other specified pregnancy related conditions, first trimester; Z79.899 Other long term (current) drug therapy

== ENCOUNTER → 2019-07-21 | Outpatient (REF) | payer OTHER ==
[~2019-07-21] MED LIST changes: +BUDE180INH INH; +FLUT11IN INH; +MULTTAB20 PO; +PROA1AER2 INH
[2019-07-21 14:19] LABS: HEMATOCRIT 38.1 % (36.0-47.0); HEMOGLOBIN 12.6 g/dl (12.0-15.5); MEAN CORPUSCULAR HEMOGLOBIN 30.7 pg (27.0-33.0); MEAN CORPUSCULAR HGB CONC 33.1 g/dl (32.0-36.5); MEAN CORPUSCULAR VOLUME 92.7 fl (80.0-96.0); PLATELET COUNT, AUTOMATED 259 10^3/uL (150-450); RED BLOOD COUNT 4.11 10^6/uL (4.00-5.40); WHITE BLOOD COUNT 8.7 10^3/uL (4.0-10.0)
[2019-07-21 15:25] LABS: HEPATITIS B SURFACE ANTIGEN NEGATIVE (NEGATIVE); HEPATITIS C VIRUS ABY INDEX 0.1 INDEX (<0.8); HIV 1&2 SCREEN CENTAUR NEGATIVE (NEGATIVE); RUBELLA IgG QUALITATIVE IMMUNE (IMMUNE)
[2019-07-21 15:41] LABS: CHLAMYDIA DNA AMPLIFICATION NEGATIVE (NEGATIVE); GC DNA AMPLIFICATION NEGATIVE (NEGATIVE)
== END ==
LOC: M PLALAB 10:11
PROVIDERS: ATTEND Obstetrics & Gynecology
DX: O34.211 Maternal care for low transverse scar from previous cesarean delivery (principal)

== ENCOUNTER 2019-09-12 18:44 | Emergency (ER) | payer OTHER ==
[~2019-09-12] VITALS: Ht 160 cm; Wt 67.7 kg
[2019-09-12] MEDS ORDERED: METOCLOPRAMIDE INJ 10MG/2ML VIAL (J2765 PER 1) IV ONE (19:30)
[2019-09-12] MEDS ORDERED: dexameTHASONE 4 MG/ML 1ML VIAL (J1100 PER 1MG) IV ONE (19:30)
[2019-09-12] MEDS ORDERED: diphenhydrAMINE 50MG/ML VIAL (J1200) IV ONE (19:30)
[2019-09-12] MEDS ORDERED: NS 1,000 ML IV ONE (19:30)
[2019-09-12 19:53] LABS: BASO % 0.2 % (0.0-1.0); EOS # 0.1 10^3/uL (0.0-0.5); EOS % 0.9 % (0.0-3.0); HEMATOCRIT 34.8 % (36.0-47.0); HEMOGLOBIN 11.7 g/dl (12.0-15.5); LYMPH # 2.6 10^3/uL (1.5-5.0); LYMPH % 24.2 % (24.0-44.0); MEAN CORPUSCULAR HEMOGLOBIN 31.3 pg (27.0-33.0); MEAN CORPUSCULAR HGB CONC 33.6 g/dl (32.0-36.5); MONO # 0.5 10^3/uL (0.0-0.8); MONO % 4.7 % (0.0-5.0); NEUTROPHILS # 7.4 10^3/uL (1.5-8.5); NEUTROPHILS % 69.7 % (36.0-66.0); PLATELET COUNT, AUTOMATED 264 10^3/uL (150-450); RED BLOOD COUNT 3.74 10^6/uL (4.00-5.40); WHITE BLOOD COUNT 10.7 10^3/uL (4.0-10.0)
[2019-09-12 20:05] LABS: APPEARANCE, URINE CLOUDY (CLEAR); BACTERIA, URINE AUTO NEGATIVE (NEGATIVE); BILIRUBIN, URINE AUTO NEGATIVE (NEGATIVE); BLOOD, URINE BLOOD NEGATIVE (NEGATIVE); CALCIUM OXALATE CRYSTALS SMALL; COLOR, URINE YELLOW (YELLOW); GLUCOSE, URINE (UA) AUTO NEGATIVE (NEGATIVE); KETONE, URINE AUTO TRACE mg/dL (NEGATIVE); LEUKOCYTE ESTERASE, URINE AUTO NEGATIVE (NEGATIVE); NITRITE, URINE AUTO NEGATIVE (NEGATIVE); PROTEIN, URINE AUTO NEGATIVE (NEGATIVE); RBC, URINE AUTO 2 /HPF (0-3); SPECIFIC GRAVITY URINE AUTO 1.024 (1.002-1.035); SQUAMOUS EPITHELIAL CELL UR AU 2 /HPF (0-6); WBC, URINE AUTO 0 /HPF (0-3)
[2019-09-12 20:20] LABS: ALBUMIN 3.1 GM/DL (3.2-5.2); ALT/SGPT 17 U/L (12-78); BILIRUBIN,DIRECT < 0.1 MG/DL (0.0-0.2); BILIRUBIN,TOTAL 0.2 MG/DL (0.2-1.0); BLOOD UREA NITROGEN 7 MG/DL (7-18); CARBON DIOXIDE LEVEL 26 MEQ/L (21-32); CHLORIDE LEVEL 107 MEQ/L (98-107); GLUCOSE, FASTING 97 MG/DL (70-100); MAGNESIUM LEVEL 1.9 MG/DL (1.8-2.4); POTASSIUM SERUM 3.5 MEQ/L (3.5-5.1); SODIUM LEVEL 139 MEQ/L (136-145); TOTAL PROTEIN 6.7 GM/DL (6.4-8.2); URIC ACID 2.9 MG/DL (2.6-6.0)
[2019-09-12 21:15] VITALS: BP 93/53
--- NOTE | 2019-09-13 15:56 | ECGEPIP ---
[facility] - ED Test Date: 2019-09-12 Pat Name: JENN ROLDAN Department: Room: - Gender: Female Small Offset Printer: elan : 2000 Requested By: Jordan Mahmood Order Number: [id number] Reading MD: Malcolm Zavala Measurements Intervals Aiken Rate: 94 P: 56 NM: 162 QRS: 57 QRSD: 82 T: 49 QT: 327 QTc: 409 Interpretive Statements SINUS RHYTHM WITH SINUS ARRHYTHMIA Nonspecific ST-T wave abnormalities Similar to tracing done 05-23-19 Electronically Signed on 09-13-2019 15:56:29 EDT by Malcolm Zavala
== END 2019-09-12 21:36 | disposition home or self-care (01) ==
LOC: M ED 18:44
DX: E86.0 Dehydration (principal); J45.909 Unspecified asthma, uncomplicated; E03.9 Hypothyroidism, unspecified
CPT/HCPCS: 80048; 80076; 81001; 83735; 84550; 85025; 87086; 93005; 93041; 96361; 96374; 96375; 99284; J1100; J1200; J2765

== ENCOUNTER → 2019-09-22 | Outpatient (CLI) | payer OTHER ==
--- NOTE | 2019-09-22 15:46 | REP ---
Clinical: Anatomical evaluation. Comparison: None. Findings: Examination demonstrates a single live intrauterine in breech presentation. motion is identified by technologist. Placenta is noted anterior and grade I without evidence for placenta previa or abruption. Amniotic fluid volume is normal. Cervix measures 3.1 cm in length and appears closed. No evidence for nuchal cord. Gestational age by LMP 18 weeks 3 days with BOOM 02/20/2020 . Gestational age by current measurements 18 weeks 2 days with BOOM 02/21/2020 . FHR equals 155 beats per minute. BPD 4.0 cm 18 weeks 2 days HC 15.1 cm 18 weeks 1 day AC 12.9 cm 18 weeks 3 days FL 2.9 cm 18 weeks 6 days HL 2.8 cm 19 weeks 1 day HC/AC ratio 1.17 Estimated weight 247 grams ( 53 percentile). Anatomical assessment demonstrates normal structures including cranium, choroid plexus, cavum, cerebellum/posterior fossa, facial features, lungs, four-chamber heart/ventricular outflow tracts, diaphragm, stomach, cord insertion/three-vessel cord, kidneys/bladder, spine, and extremities. Impression: Single live intrauterine in breech presentation demonstrating appropriate estimated weight. Anatomical assessment is complete and normal.
== END ==
LOC: M WHC 14:14
PROVIDERS: ATTEND Advanced Practice Midwife
DX: O34.211 Maternal care for low transverse scar from previous cesarean delivery (principal); Z3A.16 16 weeks gestation of pregnancy

== ENCOUNTER → 2019-11-16 | Outpatient (CLI) | payer OTHER ==
[~2019-11-16] MED LIST changes: +PNV-TAB2 PO
[2019-11-16 15:32] LABS: BASO % 0.2 % (0.0-1.0); EOS # 0.1 10^3/uL (0.0-0.5); HEMATOCRIT 35.4 % (36.0-47.0); HEMOGLOBIN 11.4 g/dl (12.0-15.5); LYMPH % 19.2 % (24.0-44.0); MEAN CORPUSCULAR HEMOGLOBIN 31.4 pg (27.0-33.0); MEAN CORPUSCULAR HGB CONC 32.2 g/dl (32.0-36.5); MEAN CORPUSCULAR VOLUME 97.5 fl (80.0-96.0); MONO # 0.5 10^3/uL (0.0-0.8); MONO % 4.4 % (0.0-5.0); NEUTROPHILS # 7.8 10^3/uL (1.5-8.5); NEUTROPHILS % 74.7 % (36.0-66.0); PLATELET COUNT, AUTOMATED 281 10^3/uL (150-450); RED BLOOD COUNT 3.63 10^6/uL (4.00-5.40); WHITE BLOOD COUNT 10.4 10^3/uL (4.0-10.0)
== END ==
LOC: M PLALAB 09:31
PROVIDERS: ATTEND Advanced Practice Midwife
DX: Z34.82 Encounter for supervision of other normal pregnancy, second trimester (principal); Z36.89 Encounter for other specified antenatal screening

== ENCOUNTER 2019-12-13 11:40 | Outpatient (CLI) | payer OTHER ==
[~2019-12-13] VITALS: Ht 160 cm; Wt 76.0 kg
[~2019-12-13 11:40] MED LIST changes: -PNV-TAB2 PO
[2019-12-13 11:53] VITALS: BP 95/54
[2019-12-13] MEDS ORDERED: PNV-TAB2 PO (12:30)
== END 2019-12-13 14:00 | disposition home or self-care (01) ==
LOC: M LDO 11:40
PROVIDERS: ATTEND Advanced Practice Midwife
DX: O26.893 Other specified pregnancy related conditions, third trimester (principal); Z3A.30 30 weeks gestation of pregnancy
CPT/HCPCS: 59025; G0378; G0463

== ENCOUNTER → 2019-12-16 | Outpatient (CLI) | payer OTHER ==
[~2019-12-16] MED LIST changes: +PNV-TAB2 PO
[2019-12-16 18:07] LABS: ALT/SGPT 20 U/L (12-78); BILIRUBIN,DIRECT < 0.1 MG/DL (0.0-0.2); BILIRUBIN,TOTAL 0.4 MG/DL (0.2-1.0)
== END ==
LOC: M PLALAB 14:34
PROVIDERS: ATTEND Advanced Practice Midwife
DX: L29.8 Other pruritus (principal)

== ENCOUNTER 2019-12-29 22:11 | Outpatient (CLI) | payer OTHER ==
[~2019-12-29] VITALS: Ht 160 cm; Wt 78.3 kg
[2019-12-29 22:48] VITALS: BP 91/50
[2019-12-29 23:40] VITALS: BP 92/54
== END 2019-12-29 23:42 | disposition home or self-care (01) ==
LOC: M LDO 22:11
PROVIDERS: ATTEND Advanced Practice Midwife
DX: O36.8130 Decreased fetal movements, third trimester, not applicable or unspecified (principal); Z3A.32 32 weeks gestation of pregnancy
CPT/HCPCS: 59025; G0378; G0463

== ENCOUNTER 2019-12-31 19:28 | Outpatient (CLI) | payer OTHER ==
[~2019-12-31] VITALS: Ht 160 cm; Wt 72.7 kg
[2019-12-31 19:41] VITALS: BP 107/64
[2019-12-31] MEDS ORDERED: CYCLOBENZAPRINE 10MG TABLET PO ONE (21:00)
[2019-12-31 21:57] VITALS: BP 113/65
--- NOTE | 2019-12-31 22:24 | IPNPDOC ---
Obstetrical Progress Note Date of Service Dec 31, 2019 Subjective Pt presents to L&D triage by ambulance w/ complaint of severe low back pain 40 minutes prior to arrival. She describes it as a constant dull ache. Denies any attempts at palliative measures. No previous back pain. No recent injury reported. Reports difficulty with ambulation. Denies contractions, LOF, or vaginal bleeding. Fetus is active. Objective Vital Signs Date Time Temp Pulse Resp B/P (MAP) Pulse Ox O2 Delivery O2 Flow Rate FiO2 12/31/19 19:41 98.5 101 107/64 (78) UA specific gravity 1.006 pH 7 nitrites negative bacteria negative leuk esterase negative Sacral back non-tender to palpation. Assessment Heart Rate (FHR): 140 Variability: Moderate Accelerations: Positive Decelerations: None Heart Rate Tracing: Category I Tocometer Contractions: No Assessment and Plan Age: 19 : 3 Term: 1 Pre-term: 1 Abortions: 0 Livin EGA at Admission: 33.1 Status: Reassuring (FHR Category I) Additional Comments A: IUP @ 33 1/7 weeks gestation, FHR category I, low back pain P: Pt received flexeril for back pain and denies any improvement. She was offered therapeutic rest and overnight stay with re-evaluation in the morning and she declined. Reviewed risks and benefits to MRI evaluation, at this time the risks outweigh the benefits. Reviewed palliative measures for back pain including heating pad, back stretches, support belt. Plan PT referral for outpatient evaluation and treatment of back pain. Reviewed s/sx PTL, FKC, and danger signs. Reviewed access to care. Keep next appointment as scheduled. EM WESLEY CNM Dec 31, 2019 22:24
== END 2019-12-31 22:20 | disposition home or self-care (01) ==
LOC: M LDO 19:28
PROVIDERS: ATTEND Advanced Practice Midwife
DX: O26.893 Other specified pregnancy related conditions, third trimester (principal); M54.89 Other dorsalgia; Z3A.33 33 weeks gestation of pregnancy
CPT/HCPCS: 59025; 81001; G0378; G0463

== ENCOUNTER → 2020-01-31 | Outpatient (REF) | payer OTHER ==
[~2020-01-31] MED LIST changes: -CLIN300C5; +CLIN300C6; +FERR325T3 PO
== END ==
LOC: M SFHCWAGY 16:46
PROVIDERS: ATTEND Obstetrics & Gynecology
DX: O34.211 Maternal care for low transverse scar from previous cesarean delivery (principal)
CPT/HCPCS: 87081; G0463

== ENCOUNTER → 2020-02-05 | Outpatient (CLI) | payer OTHER ==
[~2020-02-05] MED LIST changes: +CLIN300C5; -CLIN300C6; -FERR325T3 PO
== END ==
LOC: M LABSMTC 11:37
PROVIDERS: ATTEND Anesthesiology
DX: Z01.812 Encounter for preprocedural laboratory examination (principal); Z20.828 Contact with and (suspected) exposure to other viral communicable diseases

== ENCOUNTER 2020-02-06 14:32 | Outpatient (CLI) | payer OTHER ==
[~2020-02-06] VITALS: Ht 157.5 cm; Wt 79.9 kg
[2020-02-06 14:42] VITALS: BP 102/62
[2020-02-06 15:24] VITALS: BP 112/66
[2020-02-06 16:55] VITALS: BP 98/58
[2020-02-06 17:07] VITALS: BP 115/67
--- NOTE | 2020-02-06 17:41 | IPNPDOC ---
Text Note Date of Service The patient was seen on 02/06/20. NOTE Triage Note La Nena is a 19yo with SIUP at 38w3d by lmp c/w early u/s presenting with ctx. She notes they are "occasionally regular". No LOF/vb. Good movement. Has RLTCS scheduled on 02/09. 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 SCE unchanged over 2hr. Irregular ctx. Plan: -discharge home -Next visit is scheduled RLTCS 02/09 -Discussed hydration and rest -Called patient's 's command to discuss that patient came in via ambulance since she had no other mode of transportation. Numbers placed in [employer] for 1st Sgt and Commander, both of whom I talked to to discuss that patient needs reliable transportation here in the event that she goes into labor prior to scheduled c/s, she needs reliable transportation on her c/s date, and her needs to be allowed to come to delivery. I was assured that they are coming to get her after discharge from triage today, and someone will be available to bring her back in the future, as well as assured that will be allowed to be present for delivery and childcare is going to be covered. -Safe to proceed MD MASON Vega Fishbone, I+O Brea CUEVAS I+O Vital Signs Date Time Temp Pulse Resp B/P (MAP) Pulse Ox O2 Delivery O2 Flow Rate FiO2 02/06/20 17:07 98.9 102 17 115/67 (83) Raven Kirby MD Feb 06, 2020 17:41
== END 2020-02-06 17:30 | disposition home or self-care (01) ==
LOC: M LDO 14:32
PROVIDERS: ATTEND Obstetrics & Gynecology
DX: O47.1 False labor at or after 37 completed weeks of gestation (principal); Z3A.38 38 weeks gestation of pregnancy
CPT/HCPCS: 59025; G0378; G0463

== ENCOUNTER 2020-02-10 04:37 | Inpatient (IN) | payer OTHER ==
[~2020-02-10] VITALS: Ht 157.5 cm; Wt 78.6 kg
[~2020-02-10 04:37] MED LIST changes: +METOCLOPRAMIDE INJ 10MG/2ML VIAL (J2765 PER 1) IV PRN; +NALBUPHINE HCL 10 MG/ML AMP (J2300) IV PRN; +NALOXONE INJ 0.4MG/1ML VIAL (J2310 PER 1MG) IV PRN; +ONDANSETRON 4MG/2ML VIAL IV PRN; +diphenhydrAMINE 50MG/ML VIAL (J1200) IV PRN
[2020-02-10] MEDS ORDERED: BICITRA 30ML SOLN UDC PO ONE (05:00)
[2020-02-10] MEDS ORDERED: ceFAZolin SOD 2 GM in IV 1 EA IV ONE (05:00)
[2020-02-10] MEDS ORDERED: LR 1,000 ML IV SCH (05:00)
[2020-02-10] MEDS ORDERED: LR 1,000 ML IV ONE (05:00)
[2020-02-10 05:31] LABS: HEMOGLOBIN 11.4 g/dl (12.0-15.5); MEAN CORPUSCULAR HEMOGLOBIN 28.6 pg (27.0-33.0); MEAN CORPUSCULAR HGB CONC 31.7 g/dl (32.0-36.5); MEAN CORPUSCULAR VOLUME 90.2 fl (80.0-96.0); PLATELET COUNT, AUTOMATED 254 10^3/uL (150-450); RED BLOOD COUNT 3.99 10^6/uL (4.00-5.40); WHITE BLOOD COUNT 10.5 10^3/uL (4.0-10.0)
[2020-02-10] MEDS ORDERED: PERCOCET 5MG/325MG TAB PO PRN (07:45)
[2020-02-10] MEDS ORDERED: MOM 30ML SUSPENSION UDC PO PRN (07:45)
[2020-02-10] MEDS ORDERED: ONDANSETRON 4MG/2ML VIAL IV PRN ×2 (07:45→07:50)
[2020-02-10] MEDS ORDERED: MEASLES,MUMPS,RUBELLA VACCINE INJ (MMR-II) (90707) SC SCH (07:45)
[2020-02-10] MEDS ORDERED: OXYTOCIN DRIP 30 UNITS in IV 1 EA IV SCH (07:45)
[2020-02-10] MEDS ORDERED: RHOGAM 300 MCG (1500 IU) INJ (J2790) IM SCH (07:45)
--- NOTE | 2020-02-10 07:48 | ROOPDOC ---
[facility] Report Of Operation Report of Operation DATE OF PROCEDURE: 02/10/20 SURGEON: Mari Benavides M.D. CHANGE MANAGEMENT ADMINISTRATOR: Raven Kirby MD( essential for tissue retractions, exposure and delivery of ) PROCEDURE: Repeat section PREOPERATIVE DIAGNOSIS: 1. History of prior section x2 POSTOPERATIVE DIAGNOSIS: 1. History of prior section x2 ANESTHESIA: Spinal ESTIMATED BLOOD LOSS: 500 mL URINE OUTPUT: 50 mL INTRAVENOUS FLUIDS:1700 mL of lactated Ringer's solution PREOPERATIVE ANTIBIOTICS:. 2 g of Ancef OPERATIVE FINDINGS: Liveborn male , Apgars 9 and 9. Weight 3360gm or [id number] SPECIMENS: None DESCRIPTION OF PROCEDURE: After informed consent was obtained and written consent was reviewed. The patient was brought to the operating room where spinal anesthesia was placed. She was then placed in the supine position with a left lateral tilt. Lopez catheter was placed and to gravity. Patient was then prepped and draped in the normal sterile fashion. A timeout operating room was performed identifying the patient, procedure be performed as well as drug allergies. Anesthesia was tested and deemed to be adequate. Pfannenstiel skin incision was made and this was carried down to the underlying rectus fascia. The fascia was then scored and this incision was extended bilaterally. The fascia was then dissected off the underlying rectus muscle superiorly and inferiorly. The rectus muscles were then in the midline. The peritoneum is then entered. Vesicouterine peritoneum was then tented and excised and a bladder flap was created. Mobius retractor was then placed. Next, a curvilinear incision was then made in the lower uterine segment. Amniotomy was performed, productive, clear fluid. The head was brought to the level of the incision atraumatically and delivered along the shoulders and corpus. The cord was clamped x2. The was brought over to the warmer with a good cry. Placenta was drained and delivered grossly intact. The uterus was cleared of all clots and debris and the uterine incision was then closed using 0 Vicryl in a running locking fashion followed a second layer with 0 Vicryl for imbrication. The abdomen suctioned. Surgical sites reinspected and noted be hemostatic. The retractor was then removed. The anterior peritoneum was then reapproximated with 3-0 Vicryl. The rectus muscles were reapproximated 3-0 Vicryl. The fascia was then closed using 0 Vicryl in a running nonlocking fashion. The subcutaneous tissues was then irrigated and suctioned. Subcutaneous tissue was reapproximated using 3-0 Vicryl. Several subdermal stitch is placed using 3-0 Vicryl and the skin was closed with 4-0 Monocryl and subcuticular fashion. This incision was then cleaned and dried and was dressed. The patient was then taken to recovery in stable condition. All counts were correct. My certified surgical technician Dr. Whiteside played in an essential role during the operation. She assisted with tissue identification retraction, delivery of the , as well as wound closure. MARI BENAVIDES MD. Feb 10, 2020 07:48
[2020-02-10] MEDS ORDERED: METOCLOPRAMIDE INJ 10MG/2ML VIAL (J2765 PER 1) IV PRN (07:50)
[2020-02-10] MEDS ORDERED: NALBUPHINE HCL 10 MG/ML AMP (J2300) IV PRN (07:50)
[2020-02-10] MEDS ORDERED: diphenhydrAMINE 50MG/ML VIAL (J1200) IV PRN (07:50)
[2020-02-10] MEDS ORDERED: NALOXONE INJ 0.4MG/1ML VIAL (J2310 PER 1MG) IV PRN ×2 (07:50)
[2020-02-10] MEDS ORDERED: OXYTOCIN INJ 10 UNITS/ML VIAL (J2590) As Ordered ONE ×2 (08:32→08:40)
[2020-02-10] MEDS ORDERED: PHENYLephrine HCL 500 MCG/5 ML (100MCG/ML) SYRINGE (J2370) As Ordered ONE (08:32)
[2020-02-10] MEDS ORDERED: ONDANSETRON 4MG/2ML VIAL As Ordered ONE (08:32)
[2020-02-10] MEDS ORDERED: MORPHINE PRES-FREE INJ 10 MG/10 ML VIAL (J2274) As Ordered ONE (08:32)
[2020-02-10] MEDS ORDERED: METOCLOPRAMIDE INJ 10MG/2ML VIAL (J2765 PER 1) As Ordered ONE (08:32)
[2020-02-10] MEDS ORDERED: dexameTHASONE 4 MG/ML 1ML VIAL (J1100 PER 1MG) As Ordered ONE (08:32)
[2020-02-10] MEDS ORDERED: propofoL 200 MG/20 ML VIAL As Ordered ONE (08:35)
[2020-02-10] MEDS ORDERED: KETOROLAC 60MG 2ML VIAL As Ordered ONE (08:52)
[2020-02-10] MEDS: PRENATAL VITAMINS CHEWABLE TABLET PO SCH (09:00)
[2020-02-10] MEDS: DOCUSATE SODIUM 100 MG CAP PO SCH ×2 (09:00→20:48)
[2020-02-10] MEDS ORDERED: OXYTOCIN 30 UNITS IN 0.9% NaCl 500ML IV BAG (J2590) As Ordered ONE (09:49)
[2020-02-10 10:35] VITALS: BP 105/59
[2020-02-10 11:09] VITALS: BP 114/59
[2020-02-10 12:10] VITALS: BP 98/57
[2020-02-10 13:20] VITALS: BP 111/58
[2020-02-10] MEDS ORDERED: PERCOCET PO (13:32)
[2020-02-10] MEDS ORDERED: IBUP80TA PO (13:32)
[2020-02-10] MEDS: KETOROLAC 30 MG/ML 1ML VIAL IV SCH ×2 (14:27→20:48)
[2020-02-10 18:00] VITALS: BP 101/60
[2020-02-10 22:00] VITALS: BP 96/53
[2020-02-11 02:05] VITALS: BP 93/50
[2020-02-11] MEDS: KETOROLAC 30 MG/ML 1ML VIAL IV SCH (02:41)
[2020-02-11 06:00] VITALS: BP 98/50
[2020-02-11 06:04] LABS: HEMATOCRIT 26.8 % (36.0-47.0); MEAN CORPUSCULAR HEMOGLOBIN 28.3 pg (27.0-33.0); MEAN CORPUSCULAR VOLUME 91.5 fl (80.0-96.0); PLATELET COUNT, AUTOMATED 216 10^3/uL (150-450); RED BLOOD COUNT 2.93 10^6/uL (4.00-5.40); WHITE BLOOD COUNT 16.7 10^3/uL (4.0-10.0)
[2020-02-11 06:08] LABS: HEMOGLOBIN 8.3 g/dl (12.0-15.5)
--- NOTE | 2020-02-11 06:48 | IPNPDOC ---
Progress Note Date of Service: Feb 11, 2020 Day#: 1 Progress Note POD 1 SUBJECT: La Nena is a 19yo [id number] s/p uncomplicated RLTCS on 02/10/20, doing well /post-op day # 1. She strongly desires to go home today. She has been ambulating, voiding spontaneously without issue and tolerating regular diet. Breast and bottle feeding without issue. Reports lochia is like a normal period. Pain well controlled with percocet/motrin. No fevers/chills/nausea/vomiting/CP/SOB. OBJECTIVE: VITAL SIGNS: Within normal limits, afebrile. Alert and oriented times three. Abdomen: Fundus firm at U-2. Soft, appropriately tender to palpation. Pfannenstiel incision covered by optifoam dressing, clean/dry/intact. Extremities: no pain with palpation of calves Labs: pre-op H/H: 11.4/36 post-op H/H: 8.3/26.8 ASSESSMENT: La Nena is a 19yo [id number] s/p uncomplicated RLTCS on 02/10/20, doing well /post-op day # 1. Vitals within normal limits, afebrile, hemodynamically stable with no evidence of infection. PLAN: 1. Discharge to home later today. 2. Percocet and Motrin for pain. Ferrous sulfate for anemia. 3. Encourage breast feeding and ambulation. 4. Plans on using Nexplanon for contraception 5. Incision check in [address] clinic with [address] Benavides as scheduled 6. Discussed return precautions at length. Raven Kirby MD VS, I&O, 24H, [facility] Vital Signs/I&O Vital Signs Date Time Temp Pulse Resp B/P (MAP) Pulse Ox O2 Delivery O2 Flow Rate FiO2 02/11/20 06:00 97.2 81 16 98/50 (66) 96 Room Air I&O- Last 24 Hours up to 6 AM 02/11/20 06:00 Intake Total 2087 ml Output Total 1975 ml Balance 112 ml Laboratory Data 24H LABS Laboratory Tests 2 02/11/20 05:41: Nucleated Red Blood Cells % (auto) 0.0 CBC/BMP Laboratory Tests 02/11/20 05:41 Raven Kirby MD Feb 11, 2020 06:48
--- NOTE | 2020-02-11 06:50 | DS.PDOC ---
Discharge Summary General Date of Admission Feb 10, 2020 at 04:37 Date of Discharge Feb 11, 2020 Discharge Summary PROCEDURES PERFORMED DURING STAY: RLTCS ADMITTING DIAGNOSES: 1. history of prior sections desiring repeat DISCHARGE DIAGNOSES: 1. history of prior sections desiring repeat COMPLICATIONS/CHIEF COMPLAINT: Previous Section X2. HISTORY OF PRESENT ILLNESS/HOSPITAL COURSE: La Nena is a 19yo [id number] s/p uncomplicated RLTCS on 02/10/20, doing well /post-op day # 1. Vitals within normal limits, afebrile, hemodynamically stable with no evidence of infection. She has had a benign post- operative course and strongly desires discharge home today. DISCHARGE MEDICATIONS: Please see below. ALLERGIES: Please see below. PHYSICAL EXAMINATION ON DISCHARGE: VITAL SIGNS: Within normal limits, afebrile. Alert and oriented times three. Abdomen: Fundus firm at U-2. Soft, appropriately tender to palpation. Pfannenstiel incision covered by optifoam dressing, clean/dry/intact. Extremities: no pain with palpation of calves LABORATORY DATA: Please see below. pre-op H/H: 11.4/36 post-op H/H: 8.3/26.8 ACTIVITY: vaginal rest 6 weeks no heavy lifting DIET: regular DISPOSITION: home DISCHARGE PLAN/INSTRUCTIONS: 1. Discharge to home later today. 2. Percocet and Motrin for pain. Ferrous sulfate for anemia. 3. Encourage breast feeding and ambulation. 4. Plans on using Nexplanon for contraception 5. Incision check in [address] Benavides as scheduled 6. Discussed return precautions at length. DISCHARGE CONDITION: Stable TIME SPENT ON DISCHARGE: Greater than 20 minutes. Raven Kirby MD Vital Signs/I&Os Vital Signs Date Time Temp Pulse Resp B/P (MAP) Pulse Ox O2 Delivery O2 Flow Rate FiO2 02/11/20 06:00 97.2 81 16 98/50 (66) 96 Room Air I&O- Last 24 Hours up to 6 AM 02/11/20 06:00 Intake Total 2087 ml Output Total 1975 ml Balance 112 ml Laboratory Data Labs 24H Laboratory Tests 2 02/11/20 05:41: Nucleated Red Blood Cells % (auto) 0.0 CBC/BMP Laboratory Tests 02/11/20 05:41 Discharge Medications Scheduled Ibuprofen (Ibuprofen) 800 Mg Tablet, 800 MG PO Q8H Scheduled PRN Albuterol Sulfate (Proair Respiclick) 90 Mcg Aer.pow.ba, 2 PUFF INH Q4-6HP PRN for shortness of breath Oxycodone/Acetaminophen (Oxycodone-Acetaminophen 5-325) 1 Each Tablet, 1-2 TAB PO Q6H PRN for SEVERE PAIN (PS 8-10) Allergies Coded Allergies: No Known Allergies (Unverified , 02/04/20) Raven Kirby MD Feb 11, 2020 06:50
[2020-02-11] MEDS ORDERED: DOCU100C16 PO (06:54)
[2020-02-11] MEDS ORDERED: FERR325T3 PO (06:54)
[2020-02-11] MEDS: PRENATAL VITAMINS CHEWABLE TABLET PO SCH (07:16)
[2020-02-11] MEDS: DOCUSATE SODIUM 100 MG CAP PO SCH (07:16)
[2020-02-11] MEDS: PERCOCET 5MG/325MG TAB PO PRN ×2 (07:17→13:16)
[2020-02-11 10:00] VITALS: BP 107/60
[2020-02-11] MEDS ORDERED: IBUPROFEN 800 MG TAB PO SCH (11:00)
== END 2020-02-11 15:00 | disposition home or self-care (01) | DRG 773 ==
LOC: M LDI 04:37 → M OBS 10:28
PROVIDERS: ADMIT Obstetrics & Gynecology; ATTEND Obstetrics & Gynecology
PROC: 10D00Z1 Extraction of Products of Conception, Low, Open Approach (ICD-10-PCS; principal; 2020-02-10 07:30)
DX: O34.211 Maternal care for low transverse scar from previous cesarean delivery (principal); Z37.0 Single live birth; Z3A.39 39 weeks gestation of pregnancy

== ENCOUNTER 2020-04-26 09:36 | Emergency (ER) | payer OTHER ==
[~2020-04-26] VITALS: Ht 157.5 cm; Wt 72.1 kg
[~2020-04-26 09:36] MED LIST changes: -CLIN300C5; +CLIN300C6; +FERR325T3 PO; -METOCLOPRAMIDE INJ 10MG/2ML VIAL (J2765 PER 1) IV PRN; -NALBUPHINE HCL 10 MG/ML AMP (J2300) IV PRN; -NALOXONE INJ 0.4MG/1ML VIAL (J2310 PER 1MG) IV PRN; -ONDANSETRON 4MG/2ML VIAL IV PRN; -diphenhydrAMINE 50MG/ML VIAL (J1200) IV PRN
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
--- OUTSIDE RECORDS SUMMARY | 2020-04-26 09:43 | CCD ---
Author Author [facility] Organization [facility] Address Unknown Phone Unavailable Support Name Relationship Address Phone UE Next Of Kin Unknown Unavailable PAOLO ROLDAN Next Of Kin [address] [place] [address] [place] [address] PAOLO ROLDAN ECON [address] [place] [address] Unavailable Re-disclosure Warning The records that you are about to access may contain information from federally-assisted alcohol or drug abuse programs. If such information is present, then the following federally mandated warning applies: This information has been disclosed to you from records protected by federal confidentiality rules (42 CFR part 2). The federal rules prohibit you from making any further disclosure of this information unless further disclosure is expressly permitted by the written consent of the person to whom it pertains or as otherwise permitted by 42 CFR part 2. A general authorization for the release of medical or other information is NOT sufficient for this purpose. The Federal rules restrict any use of the information to criminally investigate or prosecute any alcohol or drug abuse patient.The records that you are about to access may contain highly sensitive health information, the redisclosure of which is protected by Article 27-F of the [facility] Public Health law. If you continue you may have access to information: Regarding HIV / AIDS; Provided by facilities licensed or operated by the [facility] Office of Mental Health; or Provided by the [facility] Office for People With Developmental Disabilities. If such information is present, then the following [facility] mandated warning applies: This information has been disclosed to you from confidential records which are protected by state law. State law prohibits you from making any further disclosure of this information without the specific written consent of the person to whom it pertains, or as otherwise permitted by law. Any unauthorized further disclosure in violation of state law may result in a fine or chcf sentence or both. A general authorization for the release of medical or other information is NOT sufficient authorization for further disc losure. Encounters Encounter Providers Location Date Indications Data Source(s ) ( ESTOB) enter Est OB [address] [place] [address] 01/31/2020 12:00:00 AM EST eCW1 ([facility]) ( ESTOB) [facility] Est OB [address] [place] [address] 01/12/2020 12:00:00 AM EDT eCW1 ([facility]) Unknown [address] [facility] [address] 01/12/2020 12:00:00 AM EDT eCW1 ([facility]) Unknown [address] [facility] [address] 01/05/2020 12:00:00 AM EDT eCW1 ([facility]) Unknown [address] [facility] [address] 12/31/2019 12:00:00 AM EDT eCW1 ([facility]) ( ESTOB) enter Est OB [address] [place] [address] 12/30/2019 12:00:00 AM EDT eCW1 ([facility]) ( ESTOB) [facility] Est OB [address] [place] [address] 09/02/2019 12:00:00 AM EDT eCW1 ([facility]) [facility] [address] [place] [address] 08/20/2019 12:00:00 AM EDT eCW1 ([facility]) [facility] [address] [place] [address] 07/21/2019 12:00:00 AM EDT eCW1 ([facility]) Outpatient 06/29/2019 05:27:00 AM EDT [facility] Outpatient 06/15/2019 06:36:00 AM EDT [facility] Outpatient 05/27/2019 12:55:00 PM EST [facility] [address] [address] 04/15/2019 12:00:00 AM EST eCW1 ([facility]) [facility] [address] [place] [address] 04/04/2019 12:00:00 AM EST eCW1 ([facility]) [facility] [place] [address] [place] [address] 04/01/2019 12:00:00 AM EST eCW1 ([facility]) [address] [address] 03/22/2019 12:00:00 AM EST eCW1 ([facility]) [address] [address] 03/03/2019 12:00:00 AM EST eCW1 ([facility]) [address] [address] 03/02/2019 12:00:00 AM EST eCW1 ([facility]) [facility] [address] [place] [address] 02/26/2019 12:00:00 AM EST eCW1 ([facility]) Medications Medication Brand Name Start Date Product Form Dose Route Admi nistrative Instructions Pharmacy Instructions Status Indications Reaction Description Data Source(s) Cyclobenzaprine hydrochloride 10 MG Oral Tablet Cyclob enzaprine HCl 10 MG Cyclobenzaprine HCl 10 MG 12/31/2019 12:00:00 AM EDT 1.0 {tablet} active Cyclobenzaprine HCl 10 MG eCW1 ( [facility]) Cyclobenzaprine hydrochloride 10 MG Oral Tablet Cyclob enzaprine HCl 10 MG Cyclobenzaprine HCl 10 MG 12/31/2019 12:00:00 AM EDT 1.0 {tablet} suspended Cyclobenzaprine HCl 10 MG eCW1 ( [facility]) Cyclobenzaprine hydrochloride 10 MG Oral Tablet Cyclob enzaprine HCl 10 MG Cyclobenzaprine HCl 10 MG 12/31/2019 12:00:00 AM EDT 1.0 {tablet} suspended Cyclobenzaprine HCl 10 MG eCW1 ( [facility]) Cyclobenzaprine hydrochloride 10 MG Oral Tablet Cyclob enzaprine HCl 10 MG Cyclobenzaprine HCl 10 MG 12/31/2019 12:00:00 AM EDT 1.0 {tablet} suspended Cyclobenzaprine HCl 10 MG eCW1 ( [facility]) Cyclobenzaprine hydrochloride 10 MG Oral Tablet Cyclob enzaprine HCl 10 MG Cyclobenzaprine HCl 10 MG 12/31/2019 12:00:00 AM EDT 1.0 {tablet} active Cyclobenzaprine HCl 10 MG eCW1 ( [facility]) Cyclobenzaprine hydrochloride 10 MG Oral Tablet Cyclob enzaprine HCl 10 MG Cyclobenzaprine HCl 10 MG 12/31/2019 12:00:00 AM EDT 1.0 {tablet} suspended Cyclobenzaprine HCl 10 MG eCW1 ( [facility]) Fluconazole 150 MG Oral Tablet [Diflucan] Diflucan 150 MG Di flucan 150 MG 04/04/2019 12:00:00 AM EST active 1 tablet eCW1 ([facility]) Fluconazole 150 MG Oral Tablet [Diflucan] Diflucan 150 MG Di flucan 150 MG 04/04/2019 12:00:00 AM EST 1.0 {tablet} suspended Diflucan 150 MG eCW1 ([facility]) Fluconazole 150 MG Oral Tablet [Diflucan] Diflucan 150 MG Di flucan 150 MG 04/04/2019 12:00:00 AM EST active 1 tablet eCW1 ([facility]) Fluconazole 150 MG Oral Tablet [Diflucan] Diflucan 150 MG Di flucan 150 MG 04/04/2019 12:00:00 AM EST 1.0 {tablet} suspended Diflucan 150 MG eCW1 ([facility]) Fluconazole 150 MG Oral Tablet [Diflucan] Diflucan 150 MG Di flucan 150 MG 04/04/2019 12:00:00 AM EST 1.0 {tablet} suspended Diflucan 150 MG eCW1 ([facility]) Fluconazole 150 MG Oral Tablet [Diflucan] Diflucan 150 MG Di flucan 150 MG 04/04/2019 12:00:00 AM EST 1.0 {tablet} suspended Diflucan 150 MG eCW1 ([facility]) Fluconazole 150 MG Oral Tablet [Diflucan] Diflucan 150 MG Di flucan 150 MG 04/04/2019 12:00:00 AM EST 1.0 {tablet} suspended Diflucan 150 MG eCW1 ([facility]) Fluconazole 150 MG Oral Tablet [Diflucan] Diflucan 150 MG Di flucan 150 MG 04/04/2019 12:00:00 AM EST 1.0 {tablet} suspended Diflucan 150 MG eCW1 ([facility]) Fluconazole 150 MG Oral Tablet [Diflucan] Diflucan 150 MG Di flucan 150 MG 04/04/2019 12:00:00 AM EST 1.0 {tablet} suspended Diflucan 150 MG eCW1 ([facility]) Ibuprofen 800 MG Oral Tablet Ibuprofen 800 MG 04/01/2019 12:00:[address] suspended Ibuprofen 800 MG eCW1 ([facility]) Ibuprofen 800 MG Oral Tablet Ibuprofen 800 MG 04/01/2019 12:00:[address] suspended Ibuprofen 800 MG eCW1 ([facility]) Ibuprofen 800 MG Oral Tablet Ibuprofen 800 MG 04/01/2019 12:00:[address] suspended Ibuprofen 800 MG eCW1 ([facility]) Ibuprofen 800 MG Oral Tablet Ibuprofen 800 MG 04/01/2019 12:00:[address] suspended Ibuprofen 800 MG eCW1 ([facility]) Ibuprofen 800 MG Oral Tablet Ibuprofen 800 MG 04/01/2019 12:00:[address] active 1 tablet with food or mil k as needed eCW1 ([facility]) Ibuprofen 800 MG Oral Tablet Ibuprofen 800 MG 04/01/2019 12:00:[address] active 1 tablet with food or mil k as needed eCW1 ([facility]) Ibuprofen 800 MG Oral Tablet Ibuprofen 800 MG 04/01/2019 12:00:[address] suspended Ibuprofen 800 MG eCW1 ([facility]) Ibuprofen 800 MG Oral Tablet Ibuprofen 800 MG 04/01/2019 12:00:[address] suspended Ibuprofen 800 MG eCW1 ([facility]) Ibuprofen 800 MG Oral Tablet Ibuprofen 800 MG 04/01/2019 12:00:[address] suspended Ibuprofen 800 MG eCW1 ([facility]) Insurance Providers Payer name Policy type / Coverage type Policy ID Covered green party ID Covered green party's relationship to mcleod Policy [employer] Plan Information [facility] [id number] SP [id number] [facility] [id number] SP [id number] [facility] [id number] SELF PAY ONLY [id number] SP [id number] [facility] [id number] 2 [id number] [facility] [id number] 2 [id number] [facility] [id number] 2 [id number] SELF PAY ONLY - SP1 SP [facility] [id number] SP [id number] Problems, Conditions, and Diagnoses Code Display Name Description Problem Type Effective Dates Data Source(s) Z34.80 care Supervision of other normal P roblem 07/19/2019 12:00:00 AM EDT eCW1 ([facility]) Z34.80 care Supervision of other normal P roblem 07/19/2019 12:00:00 AM EDT eCW1 ([facility]) Surgeries/Procedures Procedure Description Date Indications Data Source(s) FLOW SHEET 07/21/2019 12:00:00 AM EDT eCW1 ([facility]) INITIAL CARE VISIT 07/21/2019 12:00:00 AM EDT eCW1 ([facility]) URINE-NO MICRO 04/01/2019 12:00:00 AM EST eCW1 ([facility]) URINE TEST 04/01/2019 12:00:00 AM EST eCW1 ([facility]) Results ID Date Data Source [id number] 02/05/2020 11:40:00 AM EST [facility] Name Value Range Interpretation Code Description Data Lilly rce(s) Supporting Document(s) SARS coronavirus 2 RNA [facility] This lab was ordered by [facility] and reported by [facility]. ID Date Data Source GROUP B STREP CULTURE 01/31/2020 12:00:00 AM EST eCW1 ([facility]) Name Value Range Interpretation Code Description Data Lilly rce(s) Supporting Document(s) GROUP B STREP CULTURE eCW1 ([facility]) ID Date Data Source HEPATITIS C ANTIBODY INDEX 07/21/2019 12:00:00 AM EDT eCW1 ( [facility]) Name Value Range Interpretation Code Description Data Lilly rce(s) Supporting Document(s) 0.1 <0.8 HEPATITIS C VIRUS DEBORAH INDEX eC W1 ([facility]) ID Date Data Source HEPATITIS B SURFACE ANTIGEN 07/21/2019 12:00:00 AM EDT eCW1 ([facility]) Name Value Range Interpretation Code Description Data Lilly rce(s) Supporting Document(s) NEGATIVE NEGATIVE HEPATITIS B SURFACE ANTIG EN eCW1 ([facility]) ID Date Data Source RUBELLA IMMUNE STATUS IgG 07/21/2019 12:00:00 AM EDT eCW1 ([facility]) Name Value Range Interpretation Code Description Data Lilly rce(s) Supporting Document(s) IMMUNE IMMUNE RUBELLA IgG QUALITATIVE eCW1 ( [facility]) ID Date Data Source SYPHILIS ANTIBODY (RPR SCREEN) 07/21/2019 12:00:00 AM EDT eC W1 ([facility]) Name Value Range Interpretation Code Description Data Lilly rce(s) Supporting Document(s) NONREACTIVE NONREACTIVE SYPHILIS eCW1 ([facility]) ID Date Data Source CHLAMYDIA & GC DNA AMPLIFICAT 07/21/2019 12:00:00 AM EDT eCW 1 ([facility]) Name Value Range Interpretation Code Description Data Lilly rce(s) Supporting Document(s) Chlamydia trachomatis rRNA [Presence] in Unspecified specimen by Probe and target amplification method NEGATIVE NEGATIVE CHLAMYDIA DNA AMPLIFICATION eCW1 ([facility]) ID Date Data Source Type and Screen Prenatal1 07/21/2019 12:00:00 AM EDT eCW1 ([facility]) Name Value Range Interpretation Code Description Data Lilly rce(s) Supporting Document(s) NEGATIVE AB SCREEN PNP1 GEL (VIS) eCW1 ([facility]) ID Date Data Source CBC - Complete Blood Count 07/21/2019 12:00:00 AM EDT eCW1 ( [facility]) Name Value Range Interpretation Code Description Data Lilly rce(s) Supporting Document(s) 4.11 4.00-5.40 RED BLOOD COUNT eCW1 ([facility]) 8.7 4.0-10.0 WHITE BLOOD COUNT eCW1 ([facility]) 38.1 36.0-47.0 HEMATOCRIT eCW1 ([facility]) 12.6 12.0-15.5 HEMOGLOBIN eCW1 ([facility]) 92.7 80.0-96.0 MEAN CORPUSCULAR VOLUME e CW1 ([facility]) 30.7 27.0-33.0 MEAN CORPUSCULAR HEMOGLOB IN eCW1 ([facility]) 259 150-450 PLATELET COUNT, AUTOMATED eCW1 ([facility]) 12.2 11.5-14.5 RED CELL DISTRIBUTION WID TH eCW1 ([facility]) 33.1 32.0-36.5 MEAN CORPUSCULAR HGB CONC eCW1 ([facility]) ID Date Data Source [id number] 06/13/2019 11:23:00 AM EDT [facility] Name Value Range Interpretation Code Description Data Lilly rce(s) Supporting Document(s) SARS CORONAVIRUS 2 RNA [facility] This lab was ordered by [facility] and reported by [facility]. ID Date Data Source CHGCTV - CHLAMYDIA, GC & TRICH AMP (Microbiology) 04/01/2019 12:00:00 AM EST eCW1 ([facility]) Name Value Range Interpretation Code Description Data Lilly rce(s) Supporting Document(s) NOT DETECTED NEGATIVE Trichomonas vaginalis ( AMP) eCW1 ([facility]) ID Date Data Source Urinalysis, no micro 04/01/2019 12:00:00 AM EST eCW1 ([facility]) Name Value Range Interpretation Code Description Data Lilly rce(s) Supporting Document(s) 1.015 1.002 - 1.035 Spec gravity eCW1 ([facility]) 5 5.0 - 9.0 pH eCW1 ([facility]) neg Negative - mg/dl Protein eCW1 ([facility]) neg Negative - Leukocyte eCW1 ([facility]) neg Negative - Nitrate eCW1 ([facility]) neg Negative - Bilirubin eCW1 ([facility]) neg Negative - mg/dl Glucose eCW1 ([facility]) neg Normal - mg/dl Urobili eCW1 ([facility]) neg Negative - mg/dl Ketones eCW1 ([facility]) yes Internal QC Acceptable (Y/N) e CW1 ([facility]) neg Negative - Blood eCW1 ([facility]) Procedure Social History Code Duration Value Status Description Data Source(s ) Smoking 02/25/2020 12:00:00 AM EST Never Smoker completed Never S moker eCW1 ([facility]) Smoking 01/28/2020 12:00:00 AM EST Never Smoker completed Never S moker eCW1 ([facility]) Smoking 01/28/2020 12:00:00 AM EST Never Smoker completed Never S moker eCW1 ([facility]) Smoking 01/12/2020 12:00:00 AM EDT Never Smoker completed Never S moker eCW1 ([facility]) Smoking 12/30/2019 12:00:00 AM EDT Never Smoker completed Never S moker eCW1 ([facility]) Smoking 12/30/2019 12:00:00 AM EDT Never Smoker completed Never S moker eCW1 ([facility]) Smoking 09/02/2019 12:00:00 AM EDT Never Smoker completed Never S moker eCW1 ([facility]) Vital Signs ID Date Data Source UNK Name Value Range Interpretation Code Description Data Source(s) Diastolic blood pressure 66 mm[Hg] 66 mm[Hg] eCW1 ([facility]) Systolic blood pressure 110 mm[Hg] 110 mm[Hg] e CW1 ([facility]) Body mass index (BMI) [Ratio] 31.642 kg/m2 31.6 42 kg/m2 eCW1 ([facility]) Body height 62 [in_i] 62 [in_i] eCW1 ([facility]) Body weight 173 [lb_av] 173 [lb_av] eCW1 ([facility]) Diastolic blood pressure 64 mm[Hg] 64 mm[Hg] eCW1 ([facility]) Systolic blood pressure 102 mm[Hg] 102 mm[Hg] e CW1 ([facility]) Body mass index (BMI) [Ratio] 31.203 kg/m2 31.2 03 kg/m2 eCW1 ([facility]) Body height 62 [in_i] 62 [in_i] eCW1 ([facility]) Body weight 170.6 [lb_av] 170.6 [lb_av] eCW1 ([facility]) Diastolic blood pressure 70 mm[Hg] 70 mm[Hg] eCW1 ([facility]) Systolic blood pressure 102 mm[Hg] 102 mm[Hg] e CW1 ([facility]) Body mass index (BMI) [Ratio] 30.984 kg/m2 30.9 84 kg/m2 eCW1 ([facility]) Body height 62 [in_i] 62 [in_i] eCW1 ([facility]) Body weight 76.84 kg 76.84 kg W1 ([facility]) Body weight 169.4 [lb_av] 169.4 [lb_av] eCW1 ([facility]) Diastolic blood pressure 60 mm[Hg] 60 mm[Hg] eCW1 ([facility]) Systolic blood pressure 108 mm[Hg] 108 mm[Hg] e CW1 ([facility]) Body mass index (BMI) [Ratio] 26.887 kg/m2 26.8 87 kg/m2 eCW1 ([facility]) Body height 62 [in_i] 62 [in_i] eCW1 ([facility]) Body weight 147 [lb_av] 147 [lb_av] eCW1 ([facility]) Diastolic blood pressure 66 mm[Hg] 66 mm[Hg] eCW1 ([facility]) Systolic blood pressure 108 mm[Hg] 108 mm[Hg] e CW1 ([facility]) Body mass index (BMI) [Ratio] 26.338 kg/m2 26.3 38 kg/m2 eCW1 ([facility]) Body height 62 [in_us] 62 [in_us] eCW1 ([facility]) Body weight Measured 144 [lb_av] 144 [lb_av] eC W1 ([facility]) Diastolic blood pressure 61 mm[Hg] 61 mm[Hg] eCW1 ([facility]) Systolic blood pressure 96 mm[Hg] 96 mm[Hg] e CW1 ([facility]) Body temperature 98.3 [degF] 98.3 [degF] eCW1 ( [facility]) Respiratory rate 18 /min 18 /min eCW1 ([facility]) Heart rate 80 /min 80 /min eCW1 ([facility]) Body mass index (BMI) [Ratio] 24.69 kg/m2 24.69 kg/m2 eCW1 ([facility]) Body height 62 [in_us] 62 [in_us] eCW1 ([facility]) Body weight Measured 135 [lb_av] 135 [lb_av] eC W1 ([facility]) Patient Treatment Plan of Care Planned Activity Planned Date Details Description Data Source (s) Cyclobenzaprine hydrochloride 10 MG Oral Tablet 12/31/2019 12:00:00 AM EDT eCW1 ([facility]) Cyclobenzaprine hydrochloride 10 MG Oral Tablet 12/31/2019 12:00:00 AM EDT eCW1 ([facility]) Fluconazole 150 MG Oral Tablet [Diflucan] 04/04/2019 12:00:00 AM ES T eCW1 ([facility]) Ibuprofen 800 MG Oral Tablet 04/01/2019 12:00:00 AM EST eCW1 ([facility])
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
[2020-04-26] MEDS ORDERED: NS 1,000 ML IV ONE (10:15)
[2020-04-26 10:18] LABS: BASO % 0.6 % (0.0-1.0); EOS # 0.2 10^3/uL (0.0-0.5); EOS % 2.5 % (0.0-3.0); HEMATOCRIT 41.2 % (36.0-47.0); HEMOGLOBIN 13.2 g/dl (12.0-15.5); LYMPH # 2.7 10^3/uL (1.5-5.0); MEAN CORPUSCULAR HEMOGLOBIN 28.6 pg (27.0-33.0); MEAN CORPUSCULAR VOLUME 89.2 fl (80.0-96.0); MONO # 0.3 10^3/uL (0.0-0.8); MONO % 5.2 % (0.0-5.0); NEUTROPHILS # 3.3 10^3/uL (1.5-8.5); NEUTROPHILS % 50.5 % (36.0-66.0); PLATELET COUNT, AUTOMATED 254 10^3/uL (150-450); RED BLOOD COUNT 4.62 10^6/uL (4.00-5.40); WHITE BLOOD COUNT 6.5 10^3/uL (4.0-10.0)
[2020-04-26 10:38] LABS: INR 0.94; PROTHROMBIN TIME 12.8 SECONDS (12.5-14.3)
[2020-04-26 10:39] LABS: PARTIAL THROMBOPLASTIN TIME 33.7 SECONDS (24.2-38.5)
[2020-04-26 10:42] LABS: ALT/SGPT 29 U/L (12-78); BILIRUBIN,DIRECT < 0.1 MG/DL (0.0-0.2); BILIRUBIN,TOTAL 0.5 MG/DL (0.2-1.0); BLOOD UREA NITROGEN 11 MG/DL (7-18); CALCIUM LEVEL 8.8 MG/DL (8.5-10.1); CARBON DIOXIDE LEVEL 28 MEQ/L (21-32); CHLORIDE LEVEL 106 MEQ/L (98-107); CREATININE FOR GFR 0.68 MG/DL (0.55-1.30); GLUCOSE, FASTING 84 MG/DL (70-100); HCG, SERUM QUANTITATIVE < 1.0 MIU/ML; LIPASE 87 U/L (73-393); POTASSIUM SERUM 3.7 MEQ/L (3.5-5.1); SODIUM LEVEL 141 MEQ/L (136-145); TOTAL PROTEIN 7.5 GM/DL (6.4-8.2)
--- NOTE | 2020-04-26 11:02 | REP ---
INDICATION: heavy vag bleeding x4 days. COMPARISON: Comparison study 09 February 2019.. TECHNIQUE: Transabdominal and transvaginal scanning were performed. FINDINGS: Uterine dimensions are normal at 7.1 x 3.7 x 4.5 cm. Endometrial echo is 0.5 cm thick and centrally placed. No free fluid is seen in the cul-de-sac. Visualized bladder telles are smooth. There is a tiny amount of fluid in the cul-de-sac consistent with physiologic fluid. The right ovary has dimensions of 3.1 x 1.8 x 2.8 cm. It's Doppler flow is normal with a resistive index of 0.63. The left ovary dimensions are normal as well at 2.9 x 2.0 x 2.1 cm. It's Doppler flow was normal with resistive index of 0.5. IMPRESSION: Normal pelvic sonography. <Electronically signed by Venkat Espinoza > 04/26/20 [id number]
--- OUTSIDE RECORDS SUMMARY | 2020-04-26 11:18 | CCD ---
Author Author [facility] Organization [facility] Address Unknown Phone Unavailable Support Name Relationship Address Phone UE Next Of Kin Unknown Unavailable PAOLO ROLDAN Next Of Kin [id number] [place] [address] PAOLO ROLDAN ECON [place] [phone] PAOLO ROLDAN ECON [address] [place] [address] Unavailable Re-disclosure Warning The records that you [...] is protected by Article 27-F of the [facility] Public Health law. If you continue you may have access to information: Regarding HIV / AIDS; Provided by facilities licensed or operated by the [facility] Office of Mental Health; or Provided by the [facility] Office for People With Developmental Disabilities. If such information is present, then the following [facility] mandated warning applies: This information has [...] law may result in a fine or custodial sentence or both. A general authorization for the release of medical or other information is NOT sufficient authorization for further disc losure. Encounters Encounter Providers Location Date Indications Data Source(s ) ( ESTOB) [facility] [address] [place] [address] 01/31/2020 12:00:00 AM EST eCW1 (Critical access hospital) ( ESTOB) enter Est OB [address] [place] [address] 01/12/2020 12:00:00 AM EDT eCW1 (Critical access hospital) Unknown [address] [facility] [address] 01/12/2020 12:00:00 AM EDT eCW1 ([facility]) Unknown [address] [facility] [address] 01/05/2020 12:00:00 AM EDT eCW1 ([facility]) Unknown [address] [facility] [address] 12/31/2019 12:00:00 AM EDT eCW1 ([facility]) ( ESTOB) enter Est OB [address] [place] [address] 12/30/2019 12:00:00 AM EDT eCW1 ([facility]) ( ESTOB) enter Est OB [address] [place] [address] 09/02/2019 12:00:00 AM EDT eCW1 (Critical access hospital) [facility] [address] [place] [address] 08/20/2019 12:00:00 AM EDT eCW1 (Critical access hospital) [facility] [address] [place] [address] 07/21/2019 12:00:00 AM EDT eCW1 (Critical access hospital) Outpatient 06/29/2019 05:27:00 AM EDT [facility] Outpatient 06/15/2019 06:36:00 AM EDT [facility] Outpatient 05/27/2019 12:55:00 PM EST [facility] [address] [address] 04/15/2019 12:00:00 AM EST eCW1 ([facility]) [facility] [address] [place] [address] 04/04/2019 12:00:00 AM EST eCW1 (Critical access hospital) [facility] [address] [place] [address] 04/01/2019 12:00:00 AM EST eCW1 (Critical access hospital) [address] [address] 03/22/2019 12:00:00 AM EST eCW1 ([facility]) [address] [address] 03/03/2019 12:00:00 AM EST eCW1 ([facility]) [address] [address] 03/02/2019 12:00:00 AM EST eCW1 ([facility]) [facility] [address] [place] [address] 02/26/2019 12:00:00 AM EST eCW1 (Critical access hospital) Medications Medication Brand Name Start Date Product Form Dose Route Admi nistrative Instructions Pharmacy Instructions Status Indications Reaction Description Data Source(s) Cyclobenzaprine hydrochloride 10 MG Oral Tablet Cyclob enzaprine HCl 10 MG Cyclobenzaprine HCl 10 MG 12/31/2019 12:00:00 AM EDT 1.0 {tablet} active Cyclobenzaprine HCl 10 MG eCW1 ( [facility]) Cyclobenzaprine hydrochloride 10 MG Oral Tablet Cyclob enzaprine HCl 10 MG Cyclobenzaprine HCl 10 MG 12/31/2019 12:00:00 AM EDT 1.0 {tablet} suspended Cyclobenzaprine HCl 10 MG eCW1 ( [facility]) Cyclobenzaprine hydrochloride 10 MG Oral Tablet Cyclob enzaprine HCl 10 MG Cyclobenzaprine HCl 10 MG 12/31/2019 12:00:00 AM EDT 1.0 {tablet} suspended Cyclobenzaprine HCl 10 MG eCW1 ( [facility]) Cyclobenzaprine hydrochloride 10 MG Oral Tablet Cyclob enzaprine HCl 10 MG Cyclobenzaprine HCl 10 MG 12/31/2019 12:00:00 AM EDT 1.0 {tablet} suspended Cyclobenzaprine HCl 10 MG eCW1 ( [facility]) Cyclobenzaprine hydrochloride 10 MG Oral Tablet Cyclob enzaprine HCl 10 MG Cyclobenzaprine HCl 10 MG 12/31/2019 12:00:00 AM EDT 1.0 {tablet} active Cyclobenzaprine HCl 10 MG eCW1 ( [facility]) Cyclobenzaprine hydrochloride 10 MG Oral Tablet Cyclob enzaprine HCl 10 MG Cyclobenzaprine HCl 10 MG 12/31/2019 12:00:00 AM EDT 1.0 {tablet} suspended Cyclobenzaprine HCl 10 MG eCW1 ( [facility]) Fluconazole 150 MG Oral Tablet [Diflucan] Diflucan 150 MG Di flucan 150 MG 04/04/2019 12:00:00 AM EST active 1 tablet eCW1 ([facility]) Fluconazole 150 MG Oral Tablet [Diflucan] Diflucan 150 MG Di flucan 150 MG 04/04/2019 12:00:00 AM EST 1.0 {tablet} suspended Diflucan 150 MG eCW1 ([facility]) Fluconazole 150 MG Oral Tablet [Diflucan] Diflucan 150 MG Di flucan 150 MG 04/04/2019 12:00:00 AM EST active 1 tablet eCW1 ([facility]) Fluconazole 150 MG Oral Tablet [Diflucan] Diflucan 150 MG Di flucan 150 MG 04/04/2019 12:00:00 AM EST 1.0 {tablet} suspended Diflucan 150 MG eCW1 ([facility]) Fluconazole 150 MG Oral Tablet [Diflucan] Diflucan 150 MG Di flucan 150 MG 04/04/2019 12:00:00 AM EST 1.0 {tablet} suspended Diflucan 150 MG eCW1 ([facility]) Fluconazole 150 MG Oral Tablet [Diflucan] Diflucan 150 MG Di flucan 150 MG 04/04/2019 12:00:00 AM EST 1.0 {tablet} suspended Diflucan 150 MG eCW1 ([facility]) Fluconazole 150 MG Oral Tablet [Diflucan] Diflucan 150 MG Di flucan 150 MG 04/04/2019 12:00:00 AM EST 1.0 {tablet} suspended Diflucan 150 MG eCW1 ([facility]) Fluconazole 150 MG Oral Tablet [Diflucan] Diflucan 150 MG Di flucan 150 MG 04/04/2019 12:00:00 AM EST 1.0 {tablet} suspended Diflucan 150 MG eCW1 ([facility]) Fluconazole 150 MG Oral Tablet [Diflucan] Diflucan 150 MG Di flucan 150 MG 04/04/2019 12:00:00 AM EST 1.0 {tablet} suspended Diflucan 150 MG eCW1 ([facility]) Ibuprofen 800 MG Oral Tablet Ibuprofen 800 MG 04/01/2019 12:00:[address] suspended Ibuprofen 800 MG eCW1 ([facility]) Ibuprofen 800 MG Oral Tablet Ibuprofen 800 MG 04/01/2019 12:00:[address] suspended Ibuprofen 800 MG eCW1 ([facility]) Ibuprofen 800 MG Oral Tablet Ibuprofen 800 MG 04/01/2019 12:00:[address] suspended Ibuprofen 800 MG eCW1 ([facility]) Ibuprofen 800 MG Oral Tablet Ibuprofen 800 MG 04/01/2019 12:00:[address] suspended Ibuprofen 800 MG eCW1 ([facility]) Ibuprofen 800 MG Oral Tablet Ibuprofen 800 MG 04/01/2019 12:00:[address] active 1 tablet with food or mil k as needed eCW1 ([facility]) Ibuprofen 800 MG Oral Tablet Ibuprofen 800 MG 04/01/2019 12:00:[address] active 1 tablet with food or mil k as needed eCW1 ([facility]) Ibuprofen 800 MG Oral Tablet Ibuprofen 800 MG 04/01/2019 12:00:[address] suspended Ibuprofen 800 MG eCW1 ([facility]) Ibuprofen 800 MG Oral Tablet Ibuprofen 800 MG 04/01/2019 12:00:[address] suspended Ibuprofen 800 MG eCW1 ([facility]) Ibuprofen 800 MG Oral Tablet Ibuprofen 800 MG 04/01/2019 12:00:[address] suspended Ibuprofen 800 MG eCW1 ([facility]) Insurance Providers Payer name Policy type / Coverage type Policy ID Covered libertarian ID Covered libertarian's relationship to mcleod Policy M[employer]od [employer] Information [facility] [id number] SP [id number] [facility] [id number] SP [id number] [facility] [id number] SELF PAY ONLY [id number] SP [id number] [facility] [id number] 2 [id number] [facility] [id number] [facility] [id number] SELF PAY ONLY - SP1 SP [employer] [id number] SP [id number] Problems, Conditions, and Diagnoses Code Display Name Description Problem Type Effective Dates Data Source(s) Z34.80 care Supervision of other normal P roblem 07/19/2019 12:00:00 AM EDT eCW1 ([facility]) Z34.80 care Supervision of other normal P roblem 07/19/2019 12:00:00 AM EDT eCW1 ([facility]) Surgeries/Procedures Procedure Description Date Indications Data Source(s) FLOW SHEET 07/21/2019 12:00:00 AM EDT eCW1 ([facility]) INITIAL CARE VISIT 07/21/2019 12:00:00 AM EDT eCW1 ([facility]) URINE-NO MICRO 04/01/2019 12:00:00 AM EST eCW1 ([facility]) URINE TEST 04/01/2019 12:00:00 AM EST eCW1 ([facility]) Results ID Date Data Source [id number] 02/05/2020 11:40:00 AM EST [facility] Name Value Range Interpretation Code Description Data Lilly rce(s) Supporting Document(s) SARS coronavirus 2 RNA [facility] This lab was ordered by [facility] and reported by [facility]. ID Date Data Source GROUP B STREP CULTURE 01/31/2020 12:00:00 AM EST eCW1 ([facility]) Name Value Range Interpretation Code Description Data Lilly rce(s) Supporting Document(s) GROUP B STREP CULTURE eCW1 ([facility]) ID Date Data Source HEPATITIS C ANTIBODY INDEX 07/21/2019 12:00:00 AM EDT eCW1 ( [facility]) Name Value Range Interpretation Code Description Data Lilly rce(s) Supporting Document(s) 0.1 <0.8 HEPATITIS C VIRUS DEBORAH INDEX eC W1 ([facility]) ID Date Data Source HEPATITIS B SURFACE ANTIGEN 07/21/2019 12:00:00 AM EDT eCW1 ([facility]) Name Value Range Interpretation Code Description Data Lilly rce(s) Supporting Document(s) NEGATIVE NEGATIVE HEPATITIS B SURFACE ANTIG EN eCW1 ([facility]) ID Date Data Source RUBELLA IMMUNE STATUS IgG 07/21/2019 12:00:00 AM EDT eCW1 ([facility]) Name Value Range Interpretation Code Description Data Lilly rce(s) Supporting Document(s) IMMUNE IMMUNE RUBELLA IgG QUALITATIVE eCW1 ( [facility]) ID Date Data Source SYPHILIS ANTIBODY (RPR SCREEN) 07/21/2019 12:00:00 AM EDT eC W1 ([facility]) Name Value Range Interpretation Code Description Data Lilly rce(s) Supporting Document(s) NONREACTIVE NONREACTIVE SYPHILIS eCW1 ([facility]) ID Date Data Source CHLAMYDIA & GC DNA AMPLIFICAT 07/21/2019 12:00:00 AM EDT eCW 1 ([facility]) Name Value Range Interpretation Code Description Data Lilly rce(s) Supporting Document(s) Chlamydia trachomatis rRNA [Presence] in Unspecified specimen by Probe and target amplification method NEGATIVE NEGATIVE CHLAMYDIA DNA AMPLIFICATION eCW1 ([facility]) ID Date Data Source Type and Screen Prenatal1 07/21/2019 12:00:00 AM EDT eCW1 ([facility]) Name Value Range Interpretation Code Description Data Lilly rce(s) Supporting Document(s) NEGATIVE AB SCREEN PNP1 GEL (VIS) eCW1 ([facility]) ID Date Data Source CBC - Complete Blood Count 07/21/2019 12:00:00 AM EDT eCW1 ( [facility]) Name Value Range Interpretation Code Description Data Lilly rce(s) Supporting Document(s) 4.11 4.00-5.40 RED BLOOD COUNT eCW1 ([facility]) 8.7 4.0-10.0 WHITE BLOOD COUNT eCW1 ([facility]) 38.1 36.0-47.0 HEMATOCRIT eCW1 ([facility]) 12.6 12.0-15.5 HEMOGLOBIN eCW1 ([facility]) 92.7 80.0-96.0 MEAN CORPUSCULAR VOLUME e CW1 ([facility]) 30.7 27.0-33.0 MEAN CORPUSCULAR HEMOGLOB IN eCW1 ([facility]) 259 150-450 PLATELET COUNT, AUTOMATED eCW1 ([facility]) 12.2 11.5-14.5 RED CELL DISTRIBUTION WID TH eCW1 ([facility]) 33.1 32.0-36.5 MEAN CORPUSCULAR HGB CONC eCW1 ([facility]) ID Date Data Source [id number] 06/13/2019 11:23:00 AM EDT [facility] Name Value Range Interpretation Code Description Data Lilly rce(s) Supporting Document(s) SARS CORONAVIRUS 2 RNA [facility] This lab was ordered by [facility] and reported by [facility]. ID Date Data Source CHGCTV - CHLAMYDIA, GC & TRICH AMP (Microbiology) 04/01/2019 12:00:00 AM EST eCW1 ([facility]) Name Value Range Interpretation Code Description Data Lilly rce(s) Supporting Document(s) NOT DETECTED NEGATIVE Trichomonas vaginalis ( AMP) eCW1 ([facility]) ID Date Data Source Urinalysis, no micro 04/01/2019 12:00:00 AM EST eCW1 ([facility]) Name Value Range Interpretation Code Description Data Lilly rce(s) Supporting Document(s) 1.015 1.002 - 1.035 Spec gravity eCW1 ([facility] hospital) 5 5.0 - 9.0 pH eCW1 ([facility]) neg Negative - mg/dl Protein eCW1 ([facility]) neg Negative - Leukocyte eCW1 ([facility]) neg Negative - Nitrate eCW1 ([facility]) neg Negative - Bilirubin eCW1 ([facility]) neg Negative - mg/dl Glucose eCW1 ([facility]) neg Normal - mg/dl Urobili eCW1 ([facility]) neg Negative - mg/dl Ketones eCW1 ([facility]) yes Internal QC Acceptable (Y/N) e CW1 ([facility]) neg Negative - Blood eCW1 ([facility]) Procedure Social History Code Duration Value Status Description Data Source(s ) Smoking 02/25/2020 12:00:00 AM EST Never Smoker completed Never S moker eCW1 ([facility]) Smoking 01/28/2020 12:00:00 AM EST Never Smoker completed Never S moker eCW1 ([facility]) Smoking 01/28/2020 12:00:00 AM EST Never Smoker completed Never S moker eCW1 ([facility]) Smoking 01/12/2020 12:00:00 AM EDT Never Smoker completed Never S moker eCW1 ([facility]) Smoking 12/30/2019 12:00:00 AM EDT Never Smoker completed Never S moker eCW1 ([facility]) Smoking 12/30/2019 12:00:00 AM EDT Never Smoker completed Never S moker eCW1 ([facility]) Smoking 09/02/2019 12:00:00 AM EDT Never Smoker completed Never S moker eCW1 ([facility]) Vital Signs ID Date Data Source UNK Name Value Range Interpretation Code Description Data Source(s) Diastolic blood pressure 66 mm[Hg] 66 mm[Hg] eCW1 ([facility]) Systolic blood pressure 110 mm[Hg] 110 mm[Hg] e CW1 ([facility]) Body mass index (BMI) [Ratio] 31.642 kg/m2 31.6 42 kg/m2 eCW1 ([facility]) Body height 62 [in_i] 62 [in_i] eCW1 (Critical access hospital) Body weight 173 [lb_av] 173 [lb_av] eCW1 ([facility]) Diastolic blood pressure 64 mm[Hg] 64 mm[Hg] eCW1 ([facility]) Systolic blood pressure 102 mm[Hg] 102 mm[Hg] e CW1 ([facility]) Body mass index (BMI) [Ratio] 31.203 kg/m2 31.2 03 kg/m2 eCW1 ([facility]) Body height 62 [in_i] 62 [in_i] eCW1 (Critical access hospital) Body weight 170.6 [lb_av] 170.6 [lb_av] eCW1 ([facility]) Diastolic blood pressure 70 mm[Hg] 70 mm[Hg] eCW1 ([facility]) Systolic blood pressure 102 mm[Hg] 102 mm[Hg] e CW1 ([facility]) Body mass index (BMI) [Ratio] 30.984 kg/m2 30.9 84 kg/m2 eCW1 ([facility]) Body height 62 [in_i] 62 [in_i] eCW1 (Critical access hospital) Body weight 76.84 kg 76.84 kg W1 (Critical access hospital) Body weight 169.4 [lb_av] 169.4 [lb_av] eCW1 ([facility]) Diastolic blood pressure 60 mm[Hg] 60 mm[Hg] eCW1 ([facility]) Systolic blood pressure 108 mm[Hg] 108 mm[Hg] e CW1 ([facility]) Body mass index (BMI) [Ratio] 26.887 kg/m2 26.8 87 kg/m2 eCW1 ([facility]) Body height 62 [in_i] 62 [in_i] eCW1 (Critical access hospital) Body weight 147 [lb_av] 147 [lb_av] eCW1 ([facility]) Diastolic blood pressure 66 mm[Hg] 66 mm[Hg] eCW1 ([facility]) Systolic blood pressure 108 mm[Hg] 108 mm[Hg] e CW1 ([facility]) Body mass index (BMI) [Ratio] 26.338 kg/m2 26.3 38 kg/m2 eCW1 ([facility]) Body height 62 [in_us] 62 [in_us] eCW1 (Critical access hospital) Body weight Measured 144 [lb_av] 144 [lb_av] eC W1 ([facility]) Diastolic blood pressure 61 mm[Hg] 61 mm[Hg] eCW1 ([facility]) Systolic blood pressure 96 mm[Hg] 96 mm[Hg] e CW1 ([facility]) Body temperature 98.3 [degF] 98.3 [degF] eCW1 ( [facility]) Respiratory rate 18 /min 18 /min eCW1 ([facility]) Heart rate 80 /min 80 /min eCW1 ([facility]) Body mass index (BMI) [Ratio] 24.69 kg/m2 24.69 kg/m2 eCW1 ([facility]) Body height 62 [in_us] 62 [in_us] eCW1 (Critical access hospital) Body weight Measured 135 [lb_av] 135 [lb_av] eC W1 ([facility]) Patient Treatment Plan of Care Planned Activity Planned Date Details Description Data Source (s) Cyclobenzaprine hydrochloride 10 MG Oral Tablet 12/31/2019 12:00:00 AM EDT eCW1 ([facility]) Cyclobenzaprine hydrochloride 10 MG Oral Tablet 12/31/2019 12:00:00 AM EDT eCW1 ([facility]) Fluconazole 150 MG Oral Tablet [Diflucan] 04/04/2019 12:00:00 AM ES T eCW1 ([facility]) Ibuprofen 800 MG Oral Tablet 04/01/2019 12:00:00 AM EST eCW1 ([facility])
[2020-04-26] MEDS ORDERED: ISOVUE-370 76% 100ML VIAL As Ordered ONE (11:40)
--- NOTE | 2020-04-26 12:20 | REP ---
INDICATION: hematochezia. COMPARISON: None. TECHNIQUE: Helical scanning was acquired and 4 mm axial images are re-formatted. Coronal and sagittal MPR images were generated and reviewed. The contrast enhancement dose is 100 mL of intravenous Isovue 370. FINDINGS: Preliminary digital custom bookbinder radiograph demonstrates an unremarkable bowel gas pattern. There are clips in right upper quadrant. The lung bases are clear. The liver shows mild diffuse fatty infiltration but is otherwise intact. No focal liver lesion is seen. Spleen is normal in size homogeneous in texture. There is a small accessory splenule. No abnormality is noted in the pancreas. No biliary ductal dilation. Normal adrenal glands. The kidneys enhance symmetrically. There is an intrarenal calculus in the lower pole collecting system of the left kidney measuring 4 mm. No hydronephrosis is seen on either side. The kidneys are otherwise morphologically intact. Gallbladder surgically absent. The appendix is surgically absent with a suture line along the cecal tip. No evidence of retroperitoneal or mesenteric mass or adenopathy. No uterine or ovarian abnormality is seen. Small and large bowel loops are unremarkable in the abdomen and pelvis. No abdominal wall defect is appreciated. IMPRESSION: Mild diffuse fatty infiltration of the liver. Post cholecystectomy. A 4 mm intrarenal calculus lower pole left kidney. Post appendectomy. Otherwise negative <Electronically signed by Venkat Espinoza > 04/26/20 [id number]
[2020-04-26 13:28] LABS: CHLAMYDIA DNA AMPLIFICATION NEGATIVE (NEGATIVE); GC DNA AMPLIFICATION NEGATIVE (NEGATIVE)
[2020-04-26 14:10] VITALS: BP 120/66
--- NOTE | 2020-04-27 07:33 | ECGEPIP ---
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
== END 2020-04-26 14:28 | disposition home or self-care (01) ==
LOC: M ED 09:36
DX: N92.0 Excessive and frequent menstruation with regular cycle (principal); N20.0 Calculus of kidney; K76.0 Fatty (change of) liver, not elsewhere classified; R19.5 Other fecal abnormalities
CPT/HCPCS: 74177; 76830; 76856; 80048; 80076; 81001; 83690; 84702; 85025; 85610; 85730; 86850; 86900; 86901; 87210; 87661; 93005; 93976; 96360; 99284; Q9967

== ENCOUNTER → 2020-06-20 | Outpatient (REF) | payer OTHER ==
[2020-06-20 17:26] LABS: HEMATOCRIT 39.3 % (36.0-47.0); HEMOGLOBIN 12.4 g/dl (12.0-15.5); MEAN CORPUSCULAR HEMOGLOBIN 29.1 pg (27.0-33.0); MEAN CORPUSCULAR HGB CONC 31.6 g/dl (32.0-36.5); MEAN CORPUSCULAR VOLUME 92.3 fl (80.0-96.0); PLATELET COUNT, AUTOMATED 297 10^3/uL (150-450); RED BLOOD COUNT 4.26 10^6/uL (4.00-5.40); WHITE BLOOD COUNT 10.1 10^3/uL (4.0-10.0)
[2020-06-20 18:28] LABS: ALBUMIN 4.3 GM/DL (3.2-5.2); ALT/SGPT 25 U/L (12-78); BILIRUBIN,TOTAL 0.5 MG/DL (0.2-1.0); BLOOD UREA NITROGEN 14 MG/DL (7-18); CARBON DIOXIDE LEVEL 28 MEQ/L (21-32); CHLORIDE LEVEL 105 MEQ/L (98-107); CHOLESTEROL LEVEL 173 MG/DL (<200); CHOLESTEROL RISK RATIO 4.435 (<5); CREATININE FOR GFR 0.59 MG/DL (0.55-1.30); GLUCOSE, FASTING 82 MG/DL (70-100); HDL CHOLESTEROL 39 MG/DL (>40); LDL CHOLESTEROL 104 MG/DL (<100); NON-HDL-C 134 MG/DL; POTASSIUM SERUM 3.6 MEQ/L (3.5-5.1); SODIUM LEVEL 139 MEQ/L (136-145); THYROID STIMULATING HORMONE 0.496 uIU/ML (0.463-3.98); TOTAL 25(OH) VITAMIN D 9.9 NG/ML (30.0-100.0); TOTAL PROTEIN 7.8 GM/DL (6.4-8.2); TRIGLYCERIDES LEVEL 151 MG/DL (<150)
== END ==
LOC: M PLALAB 14:38
PROVIDERS: ATTEND Nurse Practitioner Family
DX: R42 Dizziness and giddiness (principal); Z13.220 Encounter for screening for lipoid disorders

== ENCOUNTER 2020-07-27 23:50 | Emergency (ER) | payer OTHER ==
[~2020-07-27] VITALS: Ht 157.5 cm; Wt 79.3 kg
[2020-07-27] MEDS ORDERED: VITA50005 PO (23:56)
[2020-07-28] MEDS ORDERED: NS 1,000 ML IV ONE (03:35)
[2020-07-28] MEDS ORDERED: ONDANSETRON 4MG/2ML VIAL IV ONE (03:35)
[2020-07-28] MEDS ORDERED: ISOVUE-370 76% 100ML VIAL As Ordered ONE (03:43)
[2020-07-28 04:06] LABS: BASO # 0.1 10^3/uL (0.0-0.2); BASO % 0.5 % (0.0-1.0); EOS # 0.1 10^3/uL (0.0-0.5); EOS % 1.1 % (0.0-3.0); HEMATOCRIT 41.8 % (36.0-47.0); HEMOGLOBIN 13.3 g/dl (12.0-15.5); LYMPH # 3.5 10^3/uL (1.5-5.0); LYMPH % 31.1 % (24.0-44.0); MEAN CORPUSCULAR HEMOGLOBIN 29.7 pg (27.0-33.0); MEAN CORPUSCULAR HGB CONC 31.8 g/dl (32.0-36.5); MEAN CORPUSCULAR VOLUME 93.3 fl (80.0-96.0); MONO # 0.7 10^3/uL (0.0-0.8); MONO % 6.3 % (2.0-8.0); NEUTROPHILS # 6.7 10^3/uL (1.5-8.5); NEUTROPHILS % 60.7 % (36.0-66.0); PLATELET COUNT, AUTOMATED 285 10^3/uL (150-450); RED BLOOD COUNT 4.48 10^6/uL (4.00-5.40); WHITE BLOOD COUNT 11.1 10^3/uL (4.0-10.0)
[2020-07-28 04:43] LABS: ALBUMIN 3.9 GM/DL (3.2-5.2); ALT/SGPT 28 U/L (12-78); AMYLASE 81 U/L (25-115); BILIRUBIN,DIRECT < 0.1 MG/DL (0.0-0.2); BILIRUBIN,TOTAL 0.4 MG/DL (0.2-1.0); C REACTIVE PROTEIN QUANTITATIV 0.32 MG/DL (0.00-0.30); LIPASE 111 U/L (73-393); TOTAL PROTEIN 7.7 GM/DL (6.4-8.2)
--- NOTE | 2020-07-28 05:39 | REPVR ---
PROCEDURE INFORMATION: Exam: CT Abdomen And Pelvis With Contrast Exam date and time: 07/28/2020 3:34 AM Age: 20 years old Clinical indication: Pain; Other: Diarrhea; Additional info: Abdominal pain/diarrhea TECHNIQUE: Imaging protocol: Computed tomography of the abdomen and pelvis with contrast. Radiation optimization: All CT scans at this facility use at least one of these dose optimization techniques: automated exposure control; mA and/or kV adjustment per patient size (includes targeted exams where dose is matched to clinical indication); or iterative reconstruction. Contrast material: ISO; Contrast volume: 100 ml; Contrast route: INTRAVENOUS (IV); COMPARISON: CT ABD/PEL W/IV CONTRAST ONLY 04/26/2020 11:44 AM FINDINGS: Lungs: The visualized portions of the lung bases are normal. Liver: There is a diffuse decrease in hepatic parenchymal density, consistent with fatty infiltration. Gallbladder and bile ducts: There has been a cholecystectomy. There is no biliary ductal dilation. Pancreas: The pancreas is normal with no ductal dilation. Spleen: The spleen is normal. Adrenal glands: The adrenal glands are normal. Kidneys and ureters: There are 2 small nonobstructing stones in the left kidney. The nephrograms appear symmetric. There are no ureteral stones or hydronephrosis. Stomach and bowel: The small bowel appears unremarkable. There is no dilation or thickening of the colon. Appendix: There is a suture line at the cecum, and a few surgical clips in the right mid abdomen, likely related to an appendectomy. Intraperitoneal space: There is a small amount of free fluid in the pelvis. There is no free intraperitoneal air. Vasculature: No aortic aneurysm. Lymph nodes: No lymphadenopathy is seen. Urinary bladder: The bladder is mostly collapsed. No bladder stones are identified. Reproductive: The uterus is unremarkable. Bones/joints: No suspicious osseous lesions. No acute fractures. Soft tissues: Unremarkable. IMPRESSION: 1. Fatty liver. 2. Small nonobstructing stones in the left kidney. 3. No acute abnormality of the bowel identified. Electronically signed by: Jerri Liang On 07/28/2020 05:38:53 AM
[2020-07-28] MEDS ORDERED: ONDA4TAB6 PO (07:34)
[2020-07-28] MEDS ORDERED: LOPE2CAP PO (07:34)
[2020-07-28 07:47] VITALS: BP 98/58
== END 2020-07-28 07:49 | disposition home or self-care (01) ==
LOC: M ED 23:50
DX: R19.7 Diarrhea, unspecified (principal); J45.909 Unspecified asthma, uncomplicated; E05.90 Thyrotoxicosis, unspecified without thyrotoxic crisis or storm; Z79.899 Other long term (current) drug therapy
CPT/HCPCS: 74177; 80047; 80076; 82150; 83605; 83690; 84443; 84702; 85025; 86140; 93041; 96360; 99284; Q9967

== ENCOUNTER 2020-11-09 13:56 | Emergency (ER) | payer OTHER ==
[~2020-11-09] VITALS: Ht 157.5 cm; Wt 72.7 kg
[~2020-11-09 13:56] MED LIST changes: +ERGO500029 PO; +LOPE2CAP PO; +ONDA4TAB6 PO
--- NOTE | 2020-11-09 15:29 | REPVR ---
PROCEDURE INFORMATION: Exam: CT Head Without Contrast Exam date and time: 11/09/2020 2:55 PM Age: 20 years old Clinical indication: Numbness / parasthesia; Bilateral; Additional info: Paresthesia TECHNIQUE: Imaging protocol: Computed tomography of the head without contrast. Radiation optimization: All CT scans at this facility use at least one of these dose optimization techniques: automated exposure control; mA and/or kV adjustment per patient size (includes targeted exams where dose is matched to clinical indication); or iterative reconstruction. COMPARISON: CR Soft Tissue Neck 11/09/2020 2:55 PM FINDINGS: Brain: No acute intracranial hemorrhage, cerebral edema, or midline shift. Cerebral ventricles: No hydrocephalus. Paranasal sinuses: There is no acute sinusitis. Mastoid air cells: Visualized mastoid air cells are well aerated. Orbital cavity: Unremarkable as visualized. Bones/joints: No acute fracture. Soft tissues: Unremarkable. IMPRESSION: No acute intracranial abnormality. Electronically signed by: Marko Jauregui On 11/09/2020 15:28:56 PM
--- NOTE | 2020-11-09 15:33 | REP ---
INDICATION: Difficulty swallowing. COMPARISON: None. TECHNIQUE: Three AP and lateral views soft tissues neck. FINDINGS: There is no prevertebral soft tissue swelling. The adenoids are not significantly enlarged. The airway is widely patent. The epiglottis does not appear to be significantly enlarged. There may be enlargement of the palatine tonsils. IMPRESSION: Possible enlargement of the palatine tonsils. <Electronically signed by Migue Elise > 11/09/20 [id number]
[2020-11-09 15:51] LABS: BASO % 0.4 % (0.0-1.0); EOS # 0.1 10^3/uL (0.0-0.5); EOS % 1.4 % (0.0-3.0); HEMATOCRIT 39.4 % (36.0-47.0); HEMOGLOBIN 12.9 g/dl (12.0-15.5); LYMPH # 1.9 10^3/uL (1.5-5.0); LYMPH % 24.7 % (24.0-44.0); MEAN CORPUSCULAR HEMOGLOBIN 29.7 pg (27.0-33.0); MEAN CORPUSCULAR HGB CONC 32.7 g/dl (32.0-36.5); MEAN CORPUSCULAR VOLUME 90.8 fl (80.0-96.0); MONO # 0.5 10^3/uL (0.0-0.8); MONO % 5.9 % (2.0-8.0); NEUTROPHILS # 5.2 10^3/uL (1.5-8.5); NEUTROPHILS % 67.3 % (36.0-66.0); PLATELET COUNT, AUTOMATED 237 10^3/uL (150-450); RED BLOOD COUNT 4.34 10^6/uL (4.00-5.40); WHITE BLOOD COUNT 7.7 10^3/uL (4.0-10.0)
[2020-11-09 16:42] LABS: ALBUMIN 3.7 GM/DL (3.2-5.2); ALT/SGPT 46 U/L (12-78); BILIRUBIN,TOTAL 0.4 MG/DL (0.2-1.0); BLOOD UREA NITROGEN 8 MG/DL (7-18); CALCIUM LEVEL 8.3 MG/DL (8.5-10.1); CARBON DIOXIDE LEVEL 27 MEQ/L (21-32); CHLORIDE LEVEL 107 MEQ/L (98-107); GLOMERULAR FILTRATION RATE > 60.0 (>60); GLUCOSE, FASTING 85 MG/DL (70-100); POTASSIUM SERUM 3.7 MEQ/L (3.5-5.1); SODIUM LEVEL 140 MEQ/L (136-145); TOTAL PROTEIN 7.2 GM/DL (6.4-8.2)
[2020-11-09] MEDS ORDERED: ISOVUE-370 76% 100ML VIAL As Ordered ONE (17:39)
--- NOTE | 2020-11-09 18:04 | REPVR ---
PROCEDURE INFORMATION: Exam: CT Neck With Contrast Exam date and time: 11/09/2020 4:55 PM Age: 20 years old Clinical indication: Dysphagia / difficulty swallowing; Additional info: Swallowing difficulty TECHNIQUE: Imaging protocol: Computed tomography images of the neck with contrast. Radiation optimization: All CT scans at this facility use at least one of these dose optimization techniques: automated exposure control; mA and/or kV adjustment per patient size (includes targeted exams where dose is matched to clinical indication); or iterative reconstruction. Contrast material: ISOVUE 370; Contrast volume: 75 ml; Contrast route: INTRAVENOUS (IV); COMPARISON: CR Soft Tissue Neck 11/09/2020 2:55 PM FINDINGS: Nasopharynx: Unremarkable. Oropharynx: Unremarkable. No significant tonsillar enlargement. Hypopharynx: Unremarkable. Larynx: Unremarkable. Normal epiglottis. Retropharyngeal space: Unremarkable. Submandibular/Parotid glands: Normal. Glands are normal in size. Thyroid: Normal. No enlarged or calcified nodules. Lymph nodes: Unremarkable. No lymphadenopathy. Trachea: Visualized trachea is unremarkable. Lungs: Unremarkable as visualized. Bones/joints: Unremarkable. No acute fracture. Soft tissues: Unremarkable. No significant soft tissue swelling. IMPRESSION: No acute findings. Electronically signed by: Marko Jauregui On 11/09/2020 18:04:04 PM
[2020-11-09 19:01] VITALS: BP 127/78
== END 2020-11-09 19:02 | disposition home or self-care (01) ==
LOC: M ED 13:56 → EDBD 13:56 → M ED 19:02
DX: R20.2 Paresthesia of skin (principal)
CPT/HCPCS: 36415; 70360; 70450; 70491; 80053; 83735; 85025; 99285; Q9967

== ENCOUNTER → 2020-12-07 | Outpatient (CLI) | payer OTHER ==
[~2020-12-07] MED LIST changes: +CLIN-250; -CLIN300C6
[2020-12-07 13:07] LABS: BASO % 0.6 % (0.0-1.0); EOS # 0.2 10^3/uL (0.0-0.5); EOS % 2.7 % (0.0-3.0); HEMATOCRIT 40.5 % (36.0-47.0); HEMOGLOBIN 13.2 g/dl (12.0-15.5); LYMPH # 2.3 10^3/uL (1.5-5.0); LYMPH % 32.8 % (24.0-44.0); MEAN CORPUSCULAR HEMOGLOBIN 30.2 pg (27.0-33.0); MEAN CORPUSCULAR HGB CONC 32.6 g/dl (32.0-36.5); MEAN CORPUSCULAR VOLUME 92.7 fl (80.0-96.0); MONO # 0.3 10^3/uL (0.0-0.8); MONO % 4.7 % (2.0-8.0); NEUTROPHILS # 4.2 10^3/uL (1.5-8.5); NEUTROPHILS % 58.9 % (36.0-66.0); PLATELET COUNT, AUTOMATED 260 10^3/uL (150-450); RED BLOOD COUNT 4.37 10^6/uL (4.00-5.40); WHITE BLOOD COUNT 7.1 10^3/uL (4.0-10.0)
[2020-12-07 13:25] LABS: ALBUMIN 3.7 GM/DL (3.2-5.2); ALT/SGPT 52 U/L (12-78); BILIRUBIN,TOTAL 0.4 MG/DL (0.2-1.0); BLOOD UREA NITROGEN 10 MG/DL (7-18); C REACTIVE PROTEIN QUANTITATIV 0.55 MG/DL (0.00-0.30); CARBON DIOXIDE LEVEL 26 MEQ/L (21-32); CHLORIDE LEVEL 106 MEQ/L (98-107); CREATININE FOR GFR 0.58 MG/DL (0.55-1.30); GLOMERULAR FILTRATION RATE > 60.0 (>60); GLUCOSE, FASTING 86 MG/DL (70-100); POTASSIUM SERUM 4.1 MEQ/L (3.5-5.1); SODIUM LEVEL 139 MEQ/L (136-145); TOTAL PROTEIN 7.4 GM/DL (6.4-8.2)
[2020-12-07 13:36] LABS: TOTAL 25(OH) VITAMIN D 15.5 NG/ML (30.0-100.0); VITAMIN B12 LEVEL 545 PG/ML (247-911)
[2020-12-07 14:07] LABS: ERYTHROCYTE SEDIMENTATION RATE 23 mm/hr (0-20)
== END ==
LOC: M PLALAB 11:12
PROVIDERS: ATTEND Physician Assistant
DX: K92.1 Melena (principal)
CPT/HCPCS: 36415; 80053; 81002; 82306; 82607; 85025; 85652; 86140; G0463

== ENCOUNTER 2021-01-01 20:05 | Emergency (ER) | payer OTHER ==
[~2021-01-01] VITALS: Ht 157.5 cm; Wt 81.8 kg
[~2021-01-01 20:05] MED LIST changes: -CLIN-250; +CLIN300C6
[2021-01-01 20:07] VITALS: BP 131/91
== END 2021-01-02 01:15 | disposition left against medical advice (07) ==
LOC: M ED 01-02 00:50
DX: Z53.29 Procedure and treatment not carried out because of patient's decision for other reasons (principal)

== ENCOUNTER → 2021-03-28 | Outpatient (CLI) | payer OTHER ==
[~2021-03-28] MED LIST changes: +CLIN-250; -CLIN300C6
[2021-03-28 14:01] LABS: BASO % 0.4 % (0.0-1.0); EOS # 0.1 10^3/uL (0.0-0.5); EOS % 1.4 % (0.0-3.0); HEMATOCRIT 39.3 % (36.0-47.0); HEMOGLOBIN 12.8 g/dl (12.0-15.5); LYMPH # 2.5 10^3/uL (1.5-5.0); LYMPH % 26.1 % (24.0-44.0); MEAN CORPUSCULAR HEMOGLOBIN 30.1 pg (27.0-33.0); MEAN CORPUSCULAR HGB CONC 32.6 g/dl (32.0-36.5); MEAN CORPUSCULAR VOLUME 92.5 fl (80.0-96.0); MONO # 0.5 10^3/uL (0.0-0.8); MONO % 5.6 % (2.0-8.0); NEUTROPHILS # 6.2 10^3/uL (1.5-8.5); NEUTROPHILS % 66.3 % (36.0-66.0); PLATELET COUNT, AUTOMATED 264 10^3/uL (150-450); RED BLOOD COUNT 4.25 10^6/uL (4.00-5.40); WHITE BLOOD COUNT 9.4 10^3/uL (4.0-10.0)
[2021-03-28 14:05] LABS: INR 1.08; PROTHROMBIN TIME 14.4 SECONDS (12.7-14.5)
[2021-03-28 14:06] LABS: PARTIAL THROMBOPLASTIN TIME 35.8 SECONDS (25.9-37.0)
[2021-03-28 14:42] LABS: ALBUMIN 3.8 GM/DL (3.2-5.2); ALT/SGPT 65 U/L (12-78); BILIRUBIN,TOTAL 0.5 MG/DL (0.2-1.0); BLOOD UREA NITROGEN 10 MG/DL (7-18); CALCIUM LEVEL 8.8 MG/DL (8.5-10.1); CARBON DIOXIDE LEVEL 25 MEQ/L (21-32); CHLORIDE LEVEL 105 MEQ/L (98-107); GLOMERULAR FILTRATION RATE > 60.0 (>60); GLUCOSE, FASTING 88 MG/DL (70-100); HCG, SERUM QUANTITATIVE 35912 MIU/ML; SODIUM LEVEL 136 MEQ/L (136-145); TOTAL PROTEIN 7.1 GM/DL (6.4-8.2)
== END ==
LOC: M PLALAB 10:43
PROVIDERS: ATTEND Physician Assistant Medical
DX: O20.0 Threatened abortion (principal); Z3A.00 Weeks of gestation of pregnancy not specified
CPT/HCPCS: 36415; 76801; 76817; 80053; 84702; 85025; 85610; 85730; G0463

== ENCOUNTER → 2021-03-28 | Outpatient (CLI) | payer OTHER | LOC: M WHC 10:00 | PROVIDERS: ATTEND Physician Assistant Medical | DX: O20.8 Other hemorrhage in early pregnancy (principal); Z3A.01 Less than 8 weeks gestation of pregnancy ==

== ENCOUNTER → 2021-04-25 | Outpatient (CLI) | payer OTHER ==
[2021-04-25 15:45] LABS: BASO % 0.4 % (0.0-1.0); EOS # 0.1 10^3/uL (0.0-0.5); EOS % 1.1 % (0.0-3.0); HEMATOCRIT 37.1 % (36.0-47.0); HEMOGLOBIN 12.2 g/dl (12.0-15.5); LYMPH # 2.3 10^3/uL (1.5-5.0); LYMPH % 33.2 % (24.0-44.0); MEAN CORPUSCULAR HEMOGLOBIN 30.6 pg (27.0-33.0); MEAN CORPUSCULAR HGB CONC 32.9 g/dl (32.0-36.5); MONO # 0.5 10^3/uL (0.0-0.8); MONO % 6.4 % (2.0-8.0); NEUTROPHILS # 4.1 10^3/uL (1.5-8.5); NEUTROPHILS % 58.8 % (36.0-66.0); PLATELET COUNT, AUTOMATED 243 10^3/uL (150-450); RED BLOOD COUNT 3.99 10^6/uL (4.00-5.40)
[2021-04-25 17:02] LABS: HEPATITIS C VIRUS ABY INDEX < 0.0 INDEX (<0.8); HIV 1&2 SCREEN CENTAUR NEGATIVE (NEGATIVE)
[2021-04-25 17:09] LABS: GC DNA AMPLIFICATION NEGATIVE (NEGATIVE)
== END ==
LOC: M PLALAB 13:06
PROVIDERS: ATTEND Obstetrics & Gynecology
DX: O34.211 Maternal care for low transverse scar from previous cesarean delivery (principal); Z3A.00 Weeks of gestation of pregnancy not specified

== ENCOUNTER → 2021-06-22 | Outpatient (CLI) | payer OTHER | LOC: M WHC 08:40 | PROVIDERS: ATTEND Obstetrics & Gynecology | DX: O34.211 Maternal care for low transverse scar from previous cesarean delivery (principal); Z3A.19 19 weeks gestation of pregnancy ==